=== PATIENT | male | born 1940 | race Caucasian/White ===

== ENCOUNTER 2024-11-19 13:35 | Outpatient (CLI) | payer MEDICARE, BC, SELFPAY | END 2024-11-19 13:36 | disposition home or self-care (01) | LOC: AMB 11-28 01:18 | PROVIDERS: PCP Family Medicine; Visit Provider Emergency Medicine Emergency Medical Services | DX: S19.9XXA Unspecified injury of neck, initial encounter (principal); W07.XXXA Fall from chair, initial encounter; Y92.129 Unspecified place in nursing home as the place of occurrence of the external cause | CPT/HCPCS: A0425; A0427 ==

== ENCOUNTER 2024-11-19 14:03 | Emergency (ER) | payer MEDICARE, BC, SELFPAY ==
--- OUTSIDE RECORDS SUMMARY | 2024-11-19 14:05 | XMS_ITS | Clinical Summary ---
Author Organization [employer] [facility] Address [place], [place] [address] Care Team Providers Care Kiln Stoker Name Role Phone Ronn Roberts MD Primary Care Provider Allergies Active Allergy Reactions Criticality Noted Date Comments Homeopathic Products *Unknown 06/13/2007 Medications aspirin (ECOTRIN) 81 mg enteric coated tablet Take 81 mg by mouth once daily with a meal. 0 06/18/20 17 Active cetirizine (ZYRTEC) 10 mg tabletIndications :Allergic rhinitis due to pollen, unspecified seasonality Take 1 Tablet (10 mg) by mouth once daily. 90 tablet. 05/08/20 21 Active clobetasol 0.05% (TEMOVATE 0.05% OINTMENT) 0.05 % ointmentIndicatio ns:Rash Apply topically to affected area(s) 2 times daily. 30 g 1 07/11/20 22 Active metoprolol succinate (TOPROL XL) 50 mg sustained-release tabletIndications :Hypertension, unspecified type Take 1 Tablet (50 mg) by mouth once daily. 90 Tablet 3 01/29/20 24 Active rosuvastatin (CRESTOR) 20 mg tabletIndications :Cerebrovascular accident (CVA), unspecified mechanism (HC) Take 1 Tablet (20 mg) by mouth at bedtime. 90 Tablet 3 01/29/20 24 Active omeprazole (PRILOSEC) 20 mg Delayed-Release capsuleIndication s:Gastroesophagea l reflux disease without esophagitis Take 1 Capsule (20 mg) by mouth once daily before a meal. 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 10/21/20 24 Active multivitamin (MVI) tablet Take 1 Tablet by mouth once daily. Active ticagrelor (BRILINTA) 90 mg tabletIndications :Right-sided extracranial carotid artery occlusion,Cerebro vascular accident (CVA) due to thrombosis of right carotid artery (HC) Take 1 tablet (90mg) by mouth every 12 hours through 05/10/2025, THEN take 1 tablet (90mg) by mouth once daily through 06/09/2025, then stop taking. 90 Tablet 5 4 11:56 AM ON SITE COORDINATOR 11/09/20 24 Active acetaminophen (TYLENOL) 325 mg tabletIndications :Pain Take 2 Tablets (650 mg) by mouth every 4 hours if needed for Pain or Temp > (Specify) (Temp >100.4 F (38 C)). Max acetaminophen dose: 4000mg in 24 hrs. 11/12/20 Active losartan (COZAAR) 25 mg tabletIndications :HTN (hypertension) Take 1 Tablet (25 mg) by mouth once daily. Hold for SBP <110 11/13/20 24 Active OLANzapine (ZYPREXA ZYDIS) 5 mg disintegrating tabletIndications :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 (HC) Take ONE-HALF tablet (2.5 mg) by mouth at bedtime if needed for Agitation, Hallucinations or Sleep. 30 Tablet 4 10:43 AM ON SITE COORDINATOR 11/12/20 24 Active memantine (NAMENDA) 5 mg tablet Take 10 mg by mouth two times daily. 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 11/06/2024 Mixed Alzheimer's and vascular dementia 11/06/20 Prediabetes 10/21/2024 Hemiparesis affecting left side as late effect o f stroke 01/29/2023 Cerebrovascular accident (CVA) 12/26/2021 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 11/06/2021 B12 deficiency 09/24/2021 HTN (hypertension) 06/18/2017 Venous insufficiency 04/12/2017 Obesity, unspecified 08/30/2016 Osteoarthritis of right knee 03/03/2015 S/P total knee arthroplasty 03/03/2015 Vitamin D deficiency 11/18/2011 ED (erectile dysfunction) 07/13/2008 Occasional rectal bleeding 06/27/2007 Esophageal reflux 06/25/2007 OSTEOARTHRITIS 06/15/2007 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 [address] [place] [address] Staff, Other Clinical <No scans attached> 11/06/2024 11:56 AM ON SITE COORDINATOR - 11/17/2024 8:10 AM ON SITE COORDINATOR Hospital Encounter [facility] [address] [place] [address] Jayleen Mendez MD Jacoby, MD Lyndsay Licea Ashfaq, MD Lefebvre, MD Davon Frias, MD Kvng King, Danisha Slater MD [facility] [place] [facility] Right-sided extracranial carotid artery occlusion (Primary Dx); 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 (HC); Pain; HTN (hypertension) Discharge Disposition: Custodial Facility 11/06/2024 9:47 AM ON SITE COORDINATOR - 11/06/2024 11:19 AM ON SITE COORDINATOR Emergency [facility] [address] [place] [address] Jakub Contreras MD Cerebrovascular accident (CVA), unspecified mechanism (HC) (Primary Dx) Discharge Disposition: Short Term/PPS Hosp 11/06/2024 Travel 11/04/2024 1:50 PM ON SITE COORDINATOR Office Visit [facility] [address] [place] [address] Ronn Roberts MD Follow Up (Wound care on front left leg.) 11/04/2024 Travel 10/28/2024 1:30 PM ON SITE COORDINATOR Nurse/Clinic Staff Only [address] [place] [address] Dressing Change 10/28/2024 Travel 10/21/2024 7:55 AM ON SITE COORDINATOR Office Visit [facility] [address] [place] [address] Lisa Guo MD Leg Pain/problem (Open Sore - Left leg) 10/21/2024 Travel 09/25/2024 8:45 AM ON SITE COORDINATOR Nurse/Clinic Staff Only [address] [phone] Immunization/Injectio n (Vitamin B12) 09/25/2024 Travel 08/28/2024 8:30 AM CDT Nurse/Clinic Staff Only [address] [phone] Immunization/Injectio n (B12) 08/28/2024 Travel from Last 3 Months Immunizations Name Administration Dates Next Due COVID-19 vaccine ([employer] 30mcg/0.3mL) PF, MDV 01/07/2021,12/17/2020 Influenza, High-dose Inactivated 09/10/2018,08/18 Influenza, High-dose Quadriv alent Inactivated 08/21/2021 Influenza, IIV3 (Age >=3 years) 10/12/2014,10/15 Influenza, Inactivated AIIV4 (Age 65+ Years) Preserv Free 11/05/2020 Influenza, Inactivated IIV3 (Age 65+ Years) Preserv Free 07/28/2024,09/21/2019,08/21/2017 Pneumococcal Poly,23-Valent (Pneumovax) 03/24/20 12 Pneumococcal conj 13-Valent (Prevnar 13) 016 Td, Preservative Free (age >= 7 Years) 8 Tdap 09/04/2016 Zoster (Shingrix-RZV, recombinant) 09/01/2023, Zoster (Zostavax-ZVL, live) 03/24/2012 Family History Medical History Relation Name Comments Cancer Father lung Heart Disease Father Relation Name Status Comments Daughter Pema Hall Alive Father lung cancer fro m asbestos exposure Mother Alive Social History Tobacco Use Types Packs/Day Years Used Date Smoking Tobacco: Never Smokeless Tobacco: Never Alcohol Use Standard Drinks/Week Comments Not Currently 0 (1 standard drink = 0.6 oz pur e alcohol) [facility] Utilities Answer Date Recorded Do you have trouble paying f or utilities (for example, heat, electricity, water, phone)? Yes 11/11/2024 PHQ-2 Answer Date Recorded PHQ-2 TOTAL SCORE 0 01/29/2024 Social Connections Answer Date Recorded Do you often feel lonely or isolated from those around you? 0 11/11/2024 Financial Resource Strain Answer Date R ecorded Difficulty of Paying Living Expenses 3 11/11/2024 Difficulty of Paying Living Expenses Not on file 11/11/2024 Food Insecurity Answer Date Recorded Do you worry your food will run out before you are able to buy more? 1 11/11/2024 Transportation Needs Answer Date Record ed Does lack of transportation keep you from medica l appointments? 1 11/11/2024 Does lack of transportation keep you from work, meetings or getting things that you need? 1 11/11/2024 Housing Stability Answer Date Recorded What is your housing situation today? 1 11/11/2024 Interpersonal Safety Answer Date Record ed Are you being hit, kicked, p ushed or yelled at (see row info)? Unable to assess due to chronic condition 11/09/2024 Interpersonal Safety Abuse 12 - 18 Not on file 11/09/2024 Interpersonal Safety Ambulat ory Vulnerability Not on file 11/09/2024 Sex and Gender Information Value Date Recorded Sex Assigned at Not on file Legal Sex Male 5:23 AM ON SITE COORDINATOR Gender Identity Not on file Sexual Orientation Not on file Obstetrics History Last Filed Vital Signs Vital Sign Reading Time Taken Comments Blood Pressure 114/63 11/17/2024 5:47 AM ON SITE COORDINATOR Pulse 76 11/17/2024 5:47 AM ON SITE COORDINATOR Temperature 36.6 C (97.8 F) 11/17/2024 5:47 AM ON SITE COORDINATOR Respiratory Rate 18 11/17/2024 5:47 AM ON SITE COORDINATOR Oxygen Saturation 94% 11/17/2024 5:47 AM ON SITE COORDINATOR Inhaled Oxygen Concentration - - Weight 120.4 kg (265 lb 6.9 oz) 11/07/2024 2:00 AM ON SITE COORDINATOR Height 182.9 cm (6') 11/06/2024 10:12 AM ON SITE COORDINATOR Body Mass Index 36 11/06/2024 10:12 AM ON SITE COORDINATOR Plan of Treatment Upcoming Encounters Date Type Department Care Team (Late st Contact Info) Description 11/27/2024 1:00 PM ON SITE COORDINATOR Nurse/Clinic Staff Only [facility] [address] [place] [address] 12/08/2024 1:30 PM ON SITE COORDINATOR Appointment [facility] [address] [place] [address] 12/09/2024 2:00 PM ON SITE COORDINATOR Phone Office Visit [facility] [place] [address] [place] [phone] Raad Darling MD [address] [place] [address] 02/09/2025 11:[address] [facility] [address] [place] [address] 02/10/2025 2:00 PM CDT Phone Office Visit [facility] [place] [address] [place] [phone] Raad Darling MD [address] [place] [address] Health Maintenance Due Date Last Done Comments RSV vaccine for adults or (1 - 1-dose 75+ series) 2016 Depression screening for age 12+ 01/28/2025 01/29/2024, 07/11/2022, 05/08/2021, Additional history exists Medicare Wellness for age 65+ 01/29/2025, 07/11/2022, 05/08/2021, Additional history exists BMI (ht and wt on same day) for age 18+ 11/04/2025 11/04/2024, 01/29/2024, 07/11/2022, Additional history exists Tetanus booster 09/04/2026 09/04/2016, 07/13/2008 Pneumococcal series for age 50+ Completed 04/03/2016, 04/03/2016, 03/24/2012 Tdap Completed 09/04/2016 Zoster (shingles) series for age 50+ Completed 09/01/2023, 07/05/2023, 03/24/2012 COVID-19 vaccine series Completed 07/28/20 24, 09/21/2023, 08/30/2022, Additional history exists Influenza for age 65+ Completed 07/28/2024 , 08/21/2021, 11/05/2020, Additional history exists Medical Devices Implanted Type Area Home Teaching Grades 9 Thru 12 Teacher Device Identifier Shelf Expiration Date Model / Serial / Lot [id number] - [id number] Implanted:Qty: 1 on 03/03/2015 by Jay Nuñez MD at [facility] Ortho Total Joint Right: Knee DEPUY 03/17/2024 0 / / [id number] Description:SIGMA FEMORAL PO STERIOR STABILIZED CEMENTED SIZE 5 RIGHT [id number] - [id number] Implanted:Qty: 1 on 03/03/2015 by Jay Nuñez MD at [facility] Ortho Total Joint Right: Knee DEPUY 01/15/2025 0 / / [id number] Description:P.F.C. SIGMA TIB IAL TRAY FIXED BEARING MODULAR COCR 5 [id number] - [id number] Implanted:Qty: 1 on 03/03/2015 by Jay Nuñez MD at [facility] Ortho Total Joint Right: Knee DEPUY 09/17/2019 [id number] / / [id number] Description:OVAL DOME PATELL A 3-PEG, 41MM Cement Simplex P#[id number] * - [id number] Implanted:Qty: 1 on 03/03/2015 by Jay Nuñez MD at [facility] [employer] 07/18/2017 [id number] / / [id number] - [id number] Implanted:Qty: 1 on 03/03/2015 by Jay Nuñez MD at [facility] Right: Knee DEPUY 03/17/2019 8 / / [id number] Description:PFC SIGMA TIBIAL INSERT FIXED BEARING STAB Procedures Procedure Name Priority Date/Time Associated Diagnosis Comments GLUCOSE METER Timed 11/16/2024 9:42 PM ON SITE COORDINATOR GLUCOSE METER Timed 11/16/2024 12:42 PM ON SITE COORDINATOR WHITE BLOOD COUNT Early AM 11/15/2024 8:0 6 AM ON SITE COORDINATOR PLATELET COUNT Timed 11/15/2024 8:06 AM ON SITE COORDINATOR CREATININE Early AM 11/14/2024 6:12 AM ON SITE COORDINATOR POTASSIUM Early AM 11/14/2024 6:12 AM ON SITE COORDINATOR SODIUM Early AM 11/14/2024 6:12 AM ON SITE COORDINATOR WHITE BLOOD COUNT Early AM 11/14/2024 6:1 2 AM ON SITE COORDINATOR CBC WITH AUTO DIFFERENTIAL STAT 11/13/2024 4:25 AM ON SITE COORDINATOR COMP METABOLIC PANEL STAT 11/13/2024 4:25 AM ON SITE COORDINATOR CBC WITH AUTO DIFFERENTIAL STAT 11/13/2024 4:25 AM ON SITE COORDINATOR MAGNESIUM STAT 11/13/2024 4:25 AM ON SITE COORDINATOR BLOOD GAS,VENOUS STAT 11/13/2024 4:25 AM ON SITE COORDINATOR GLUCOSE METER Timed 11/13/2024 4:09 AM ON SITE COORDINATOR GLUCOSE METER Timed 11/12/2024 9:32 PM ON SITE COORDINATOR CT HEAD BRAIN WO STAT 11/12/2024 9:25 PM ON SITE COORDINATOR BLOOD CULTURE STAT 11/12/2024 7:45 PM ON SITE COORDINATOR BLOOD CULTURE STAT 11/12/2024 7:45 PM ON SITE COORDINATOR EKG 12 LEAD STAT 11/12/2024 7:41 PM ON SITE COORDINATOR BLOOD GAS,VENOUS STAT 11/12/2024 7:22 PM ON SITE COORDINATOR LACTATE VENOUS STAT 11/12/2024 7:22 PM ON SITE COORDINATOR XR CHEST 1 VIEW PORTABLE Routine 11/12/2024 7:20 PM ON SITE COORDINATOR UA W/ SEDIMENT EXAM REFLEXED PER CRITERIA Today 11/12/2024 6:48 PM ON SITE COORDINATOR COMP METABOLIC PANEL Today 11/12/2024 5:43 PM ON SITE COORDINATOR CBC W PLT NO DIFF Today 11/12/2024 5:4 3 PM ON SITE COORDINATOR PLATELET COUNT Timed 11/12/2024 7:08 AM ON SITE COORDINATOR PLATELET COUNT Timed 11/09/2024 6:02 AM ON SITE COORDINATOR SCAN-CARDIAC STRIP 11/09/2024 1: 18 AM ON SITE COORDINATOR GLUCOSE METER Timed 11/08/2024 8:18 AM ON SITE COORDINATOR CBC W PLT NO DIFF Early AM 11/08/2024 7:4 2 AM ON SITE COORDINATOR SCAN-CARDIAC STRIP 11/08/2024 2: 29 AM ON SITE COORDINATOR GLUCOSE METER Timed 11/08/2024 2:00 AM ON SITE COORDINATOR GLUCOSE METER Timed 11/07/2024 9:46 PM ON SITE COORDINATOR SCAN-CARDIAC STRIP 11/07/2024 5: 59 PM ON SITE COORDINATOR MR HEAD BRAIN WO Routine 11/07/2024 3:44 PM ON SITE COORDINATOR GLUCOSE METER Timed 11/07/2024 2:07 PM ON SITE COORDINATOR SCAN-CARDIAC STRIP 11/07/2024 12 :02 PM ON SITE COORDINATOR GLUCOSE METER Timed 11/07/2024 10:13 AM ON SITE COORDINATOR XR ABDOMEN 1 VIEW PORTABLE Routine 11/07/2024 8:22 AM ON SITE COORDINATOR XR ABDOMEN 1 VIEW PORTABLE STAT 11/07/2024 5:35 AM ON SITE COORDINATOR HEMOGLOBIN A1C Early AM 11/07/2024 4:39 AM ON SITE COORDINATOR LIPID PANEL Early AM 11/07/2024 4:39 AM ON SITE COORDINATOR GLUCOSE METER Timed 11/07/2024 1:56 AM ON SITE COORDINATOR GLUCOSE METER Timed 11/06/2024 8:52 PM ON SITE COORDINATOR SCAN-CARDIAC STRIP 11/06/2024 8: 00 PM ON SITE COORDINATOR ECHO TTE COMPLETE W CONTRAST Routine 11/06/2024 5:01 PM ON SITE COORDINATOR EKG 12 LEAD STAT 11/06/2024 2:32 PM ON SITE COORDINATOR IR ANGIO NEURO-INTERVENTIONAL STAT 11/06/2024 1:35 PM ON SITE COORDINATOR EKG 12 LEAD STAT 11/06/2024 10:26 AM ON SITE COORDINATOR CBC WITH AUTO DIFFERENTIAL STAT 11/06/2024 10:08 AM ON SITE COORDINATOR ETHANOL SERUM OR PLASMA STAT 11/06/2024 10:08 AM ON SITE COORDINATOR BASIC METABOLIC PANEL STAT 11/06/2024 10:08 AM ON SITE COORDINATOR PROTIME-INR STAT 11/06/2024 10:08 AM ON SITE COORDINATOR CBC WITH AUTO DIFFERENTIAL STAT 11/06/2024 10:08 AM ON SITE COORDINATOR CT HEAD STROKE PROTOCOL WITHOUT CONTRAST STAT 11/06/2024 10:05 AM ON SITE COORDINATOR CT ANGIO HEAD NECK CAROTID STROKE PROTOCOL ROLF CANDIDAT STAT 11/06/2024 10:00 AM ON SITE COORDINATOR from Last 3 Months Results * (ABNORMAL) GLUCOSE METER (11/16/2024 9:42 PM ON SITE COORDINATOR) Only the most recent of11 resultswithin the time period is included. [facility] Signature GLUCOSE METER 120(H) 65 - 100 mg/dL 11/16/2024 9:43 PM ON SITE COORDINATOR [facility] Blood BLOOD SPECIMEN / Unknown 11/16/2024 9:42 PM ON SITE COORDINATOR 11/16/2024 9:43 PM ON SITE COORDINATOR us Valarie Mays MD CHEMISTRY Roseanne l Result [facility] [address] [place] [address], [place] * PLATELET COUNT (11/15/2024 8:06 AM ON SITE COORDINATOR) Only the most recent of3 resultswithin the time period is included. PLATELET COUNT 201 140 - 440 thou/cu mm 11/15/2024 8:36 AM ON SITE COORDINATOR [facility] MPV 10.3 6.5 - 11.0 fL 11/15/2024 8:36 AM ON SITE COORDINATOR [facility] Blood BLOOD SPECIMEN / Unknown Butterfly / Unknown 11/15/2024 8:06 AM ON SITE COORDINATOR 11/15/2024 8:23 AM ON SITE COORDINATOR Narrative [facility] - 11/15/2024 8:36 AM ON SITE COORDINATOR With am labs while on heparin or LMWH per hospital policy Pepito Umana MD HEMATOLOGY Final Result Performing Organization Address [facility] de Phone Number [facility] [address] [place] [address], [place] * WBC AM (11/15/2024 8:06 AM ON SITE COORDINATOR) Only the most recent of2 resultswithin the time period is included. WHITE BLOOD COUNT 9.7 4.5 - 11.0 thou/cu mm 11/15/2024 8:36 AM ON SITE COORDINATOR [facility] NRBC 0.0 % 11/15/2024 8:36 AM ON SITE COORDINATOR [facility] ABS NRBC 0.0 thou /cu mm 11/15/2024 8:36 AM ON SITE COORDINATOR [facility] Blood BLOOD SPECIMEN / Unknown Butterfly / Unknown 11/15/2024 8:06 AM ON SITE COORDINATOR 11/15/2024 8:23 AM ON SITE COORDINATOR Narrative [facility] - 11/15/2024 8:36 AM ON SITE COORDINATOR With am labs while on heparin or LMWH per hospital policy Allan Story MD HEMATOLOGY Final R esult Performing Organization Address [facility] Co de Phone Number [facility] [address] [place] [address], [place] * SODIUM (11/14/2024 6:12 AM ON SITE COORDINATOR) SODIUM 136 136 - 145 mmol/L 11/14/2024 6:54 AM ON SITE COORDINATOR [facility] Blood BLOOD SPECIMEN / Unknown Venipuncture / Unknown 11/14/2024 6:12 AM ON SITE COORDINATOR 11/14/2024 6:22 AM ON SITE COORDINATOR Pepito Umana MD CHEMISTRY Final Result [facility] [address] [place] [address], [place] * POTASSIUM (11/14/2024 6:12 AM ON SITE COORDINATOR) POTASSIUM 4.0 3.5 - 5.1 mmol/L 11/14/2024 6:54 AM ON SITE COORDINATOR [facility] Blood BLOOD SPECIMEN / Unknown Venipuncture / Unknown 11/14/2024 6:12 AM ON SITE COORDINATOR 11/14/2024 6:22 AM ON SITE COORDINATOR Pepito Umana MD CHEMISTRY Final Result Performing Organization Address [facility] Co de Phone Number [facility] [address] [place] [address], [place] * (ABNORMAL) CREATININE (11/14/2024 6:12 AM ON SITE COORDINATOR) eGFR 70(L) >90 mL/min/1.7 3m2 11/14/2024 6:54 AM ON SITE COORDINATOR [facility] Comment:As of 2022, eG FR is calculated by the CKD-EPI creatinine equation without race adjustment. eGFR can be influenced by muscle mass, exercise, and diet. The reported eGFR is an estimation only and is only applicable if the renal function is stable. CREATININE 1.05 0.70 - 1.20 mg/dL 11/14/2024 6:54 AM ON SITE COORDINATOR [facility] Blood BLOOD SPECIMEN / Unknown Venipuncture / Unknown 11/14/2024 6:12 AM ON SITE COORDINATOR 11/14/2024 6:22 AM ON SITE COORDINATOR Pepito Umana MD CHEMISTRY Final Result [facility] [address] [place] [address], * (ABNORMAL) CBC WITH AUTO DIFFERENTIAL (11/13/2024 4:25 AM ON SITE COORDINATOR) Only the most recent of2 resultswithin the time period is included. WHITE BLOOD COUNT 12.9(H) 4.5 - 11.0 thou/cu mm 11/13/2024 4:39 AM [facility] RED BLOOD COUNT 5.29 4.30 - 5.90 mil/cu mm 11/13/2024 4:39 AM [facility] HEMOGLOBIN 15.4 13.5 - 17.5 g/dL 11/13/2024 4:39 AM [facility] HEMATOCRIT 45.3 37.0 - 53.0 % 11/13/2024 4:39 AM [facility] MCV 86 80 - 100 fL 11/13/2024 4:39 AM [facility] MCH 29.1 26.0 - 34.0 pg 11/13/2024 4:39 AM [facility] MCHC 34.0 32.0 - 36.0 g/dL 11/13/2024 4:39 AM [facility] RDW 12.5 11.5 - 15.5 % 11/13/2024 4:39 AM [facility] PLATELET COUNT 176 140 - 440 thou/cu mm 11/13/2024 4:39 AM [facility] MPV 10.2 6.5 - 11.0 fL 11/13/2024 4:39 AM [facility] NRBC 0.0 % 11/13/2024 4:39 AM [facility] ABS NRBC 0.0 thou /cu mm 11/13/2024 4:39 AM [facility] % NEUT 93.4 % 11/13/2024 4:39 AM [facility] % LYMPH 4.6 % 11/13/2024 4:39 AM [facility] % MONO 1.3 % 11/13/2024 4:39 AM [facility] % EOS 0.1 % 11/13/2024 4:39 AM [facility] % BASO 0.1 % 11/13/2024 4:39 AM [facility] % IMMATURE GRAN (METAS,MYELOS,UT OS) 0.5 % 11/13/2024 4:39 AM [facility] ABSOLUTE NEUTROPHILS 12.1(H) 1.7 - 7.0 thou/cu mm 11/13/2024 4:39 AM [facility] ABSOLUTE LYMPHOCYTES 0.6(L) 0.9 - 2.9 thou/cu mm 11/13/2024 4:39 AM [facility] ABSOLUTE MONOCYTES 0.2 <0.9 thou/cu mm 11/13/2024 4:39 AM [facility] ABSOLUTE EOSINOPHILS 0.0 <0.5 thou/cu mm 11/13/2024 4:39 AM [facility] ABSOLUTE BASOPHILS 0.0 <0.3 thou/cu mm 11/13/2024 4:39 AM [facility] ABSOLUTE IMMATURE GRANULOCYTES(MET ,MYELOS,PROS) 0.1 <0.3 thou/cu mm 11/13/2024 4:39 AM [facility] Blood BLOOD SPECIMEN / Unknown Butterfly / Unknown 11/13/2024 4:25 AM [facility] 11/13/2024 4:33 AM [facility] - 11/13/2024 4:39 AM ON SITE COORDINATOR RN to order if patient presents with two or more positive sepsis screening criteria plus new or worsening signs or symptoms of suspected infection. Pepito Umana MD HEMATOLOGY Final Result [facility] [address] [place] [address], [place] * (ABNORMAL) BLOOD GAS,VENOUS (11/13/2024 4:25 AM ON SITE COORDINATOR) Only the most recent of2 resultswithin the time period is included. PH, VENOUS 7.36 7.32 - 7.43 11/13/2024 4:46 AM ON SITE COORDINATOR [facility] PCO2, VENOUS 38(L) 41 - 51 mmHg 11/13/2024 4:46 AM ON SITE COORDINATOR [facility] PO2, VENOUS 54(H) 35 - 40 mmHg 11/13/2024 4:46 AM ON SITE COORDINATOR [facility] HCO3,VENOUS 22 22 - 29 mmol/L 11/13/2024 4:46 AM ON SITE COORDINATOR [facility] BASE EXCESS, VENOUS, POCT -3.6(L) -2.0 - 3.0 11/13/2024 4:46 AM ON SITE COORDINATOR [facility] O2 SATURATION, VENOUS 86(H) 70 - 75 % 11/13/2024 4:46 AM ON SITE COORDINATOR [facility] PATIENT TEMPERATURE 37.0 Degrees C 11/13/2024 4:46 AM ON SITE COORDINATOR [facility] Blood BLOOD SPECIMEN / Unknown Butterfly / Unknown 11/13/2024 4:25 AM ON SITE COORDINATOR 11/13/2024 4:33 AM ON SITE COORDINATOR Pepito Umana MD CHEMISTRY Final Result [facility] [address] [place] [address], [place] * Magnesium - ESTIMATOR PRINTING PLATE MAKING (11/13/2024 4:25 AM ON SITE COORDINATOR) MAGNESIUM 2.2 1.6 - 2.4 mg/dL 11/13/2024 4:56 AM ON SITE COORDINATOR [facility] Blood BLOOD SPECIMEN / Unknown Butterfly / Unknown 11/13/2024 4:25 AM ON SITE COORDINATOR 11/13/2024 4:33 AM ON SITE COORDINATOR Pepito Umana MD CHEMISTRY Final Result [facility] [address] [place] [address], * (ABNORMAL) Comprehensive Metabolic Panel - ESTIMATOR PRINTING PLATE MAKING (11/13/2024 4:25 AM ON SITE COORDINATOR) Only the most recent of2 resultswithin the time period is included. SODIUM 135(L) 136 - 145 mmol/L 11/13/2024 4:56 AM [facility] POTASSIUM 4.7 3.5 - 5.1 mmol/L 11/13/2024 4:56 AM [facility] CHLORIDE 103 98 - 107 mmol/L 11/13/2024 4:56 AM [facility] CO2,TOTAL 19(L) 22 - 29 mmol/L 11/13/2024 4:56 AM [facility] ANION GAP 13 5 - 18 11/13/2024 4:56 AM [facility] GLUCOSE 190(H) 70 - 99 mg/dL 11/13/2024 4:56 AM [facility] CALCIUM 8.8 8.8 - 10.4 mg/dL 11/13/2024 4:56 AM [facility] Comment: Reference ranges for this test were updated on 09/22/2024 to reflect our healthy population more accurately. Reference range changes are not retroactively applied to results, but previous results using the same methodology can be interpreted in the context of the new reference range. BUN 27(H) 8 - 23 mg/dL 11/13/2024 4:56 AM [facility] CREATININE 1.11 0.70 - 1.20 mg/dL 11/13/2024 4:56 AM [facility] BUN/CREAT RATIO 24(H) 10 - 20 4:56 AM [facility] eGFR 66(L) >90 mL/min/1. 73m2 11/13/2024 4:56 AM ON SITE COORDINATOR [facility] Comment:As of 2022, eG FR is calculated by the CKD-EPI creatinine equation without race adjustment. eGFR can be influenced by muscle mass, exercise, and diet. The reported eGFR is an estimation only and is only applicable if the renal function is stable. ALBUMIN 3.5(L) 4.0 - 4.9 g/dL 11/13/2024 4:56 AM ON SITE COORDINATOR [facility] PROTEIN,TOTAL 7.4 6.0 - 8.0 g/dL 11/13/2024 4:56 AM ON SITE COORDINATOR [facility] BILIRUBIN,TOTAL 0.8 0.0 - 1.2 mg/dL 11/13/2024 4:56 AM ON SITE COORDINATOR [facility] ALK PHOSPHATASE 87 40 - 129 IU/L 11/13/2024 4:56 AM ON SITE COORDINATOR [facility] ALT (SGPT) 26 10 - 50 IU/L 11/13/2024 4:56 AM ON SITE COORDINATOR [facility] AST (SGOT) 35 10 - 50 IU/L 11/13/2024 4:56 AM ON SITE COORDINATOR [facility] Blood BLOOD SPECIMEN / Unknown Butterfly / Unknown 11/13/2024 4:25 AM ON SITE COORDINATOR 11/13/2024 4:33 AM ON SITE COORDINATOR Pepito Umana MD CHEMISTRY Final Result [facility] [address] [address], * CT head without contrast (11/12/2024 9:25 PM ON SITE COORDINATOR) Anatomical Region Laterality Modality HEAD, BRAIN Computed Tomogra phy 11/12/2024 9:35 PM ON SITE COORDINATOR Impressions 11/12/2024 9:35 PM ON SITE COORDINATOR 1. Redemonstration of the subacute infarct at the right posterior temporal/perisylvian region. No CT evidence of recent ischemia elsewhere within the brain. No acute intracranial hemorrhage. Please note that all CT scans at this facility use dose modulation, iterative reconstruction, and/or weight-based dosing when appropriate to reduce radiation dose to as low as reasonably achievable. Dictated by Ricco Obando MD @ 11/12/2024 9:35:53 PM (Electronically Signed) Narrative 11/12/2024 9:35 PM ON SITE COORDINATOR For Patients: As a result of the Cures Act, medical imaging exams and procedure reports are released immediately into your electronic medical record. You may view this report before your referring provider. If you have questions, please contact your health care provider. INDICATION: Stroke follow-up. TECHNIQUE: CT of the head without contrast. Coronal and sagittal reformats are included. COMPARISON: Brain MRI from 11/07/2024. FINDINGS: Subtle hypoattenuation within the right posterior temporal/perisylvian region, consistent with known subacute infarction. No hyperdense vessels to suggest intracranial thrombus. No acute intracranial hemorrhage. No mass effect or midline shift. No hydrocephalus or extra-axial collections. Patchy white matter hypoattenuation, typical for chronic microvascular ischemic change. 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 No acute osseous abnormalities. Mastoid air cells and paranasal sinuses are clear. Normal soft tissues. Procedure Note Ricco Obando MD - 11/12/2024 For Patients: As a result of the Cures Act, medical imagingexams and procedure reports are released immediately into your electronicmedical record. You may view this report before your referring provider.If you have questions, please contact your health care provider. INDICATION: Stroke follow-up. TECHNIQUE: CT of the head without contrast. Coronal and sagittal reformats areincluded. COMPARISON: Brain MRI from 11/07/2024. FINDINGS: Subtle hypoattenuation within the right posterior temporal/perisylvianregion, consistent with known subacute infarction. No hyperdense vesselsto suggest intracranial thrombus. No acute intracranial hemorrhage. Nomass effect or midline shift. No hydrocephalus or extra-axial collections.Patchy white matter hypoattenuation, typical for chronic microvascularischemic change. A chronic transcortical infarct within the left occipitallobe. No acute osseous abnormalities. Mastoid air cells and paranasal sinusesare clear. Normal soft tissues. IMPRESSION: 1. Redemonstration of the subacute infarct at the right posteriortemporal/perisylvian region. No CT evidence of recent ischemia elsewherewithin the brain. No acute intracranial hemorrhage. Please note that all CT scans at this facility use dose modulation,iterative reconstruction, and/or weight-based dosing when appropriate toreduce radiation dose to as low as reasonably achievable. Dictated by Ricco Obando MD @ 11/12/2024 9:35:53 PM (Electronically Signed) us Cody Mendes MD CT Final Result * Blood culture STAT (11/12/2024 7:45 PM ON SITE COORDINATOR) Only the most recent of2 resultswithin the time period is included. Pathologist [facility] CULTURE No Growth. 11/17/2024 8:19 PM ON SITE COORDINATOR [facility] Blood BLOOD SPECIMEN / Unknown Butterfly / Unknown 11/12/2024 7:45 PM ON SITE COORDINATOR 11/12/2024 7:54 PM ON SITE COORDINATOR Narrative [facility] - 11/17/2024 8:19 PM ON SITE COORDINATOR Low volume blood culture received; possible false negative culture. us Cody Mendes MD MICROBIOLOGY Final Result [facility] [address] [place] [address], * ECG STAT (11/12/2024 7:41 PM ON SITE COORDINATOR) Only the most recent of3 resultswithin the time period is included. Interpretation Sinus tachycardia Minimal voltage criteria for LVH, may be normal variant ( R in aVL ) Nonspecific ST and T wave abnormality Abnormal ECG When compared with ECG of 06-Nov-2024 14:32, UT interval has decreased ST now depressed in Lateral leads Nonspecific T wave abnormality no longer evident in Inferior leads BEYOND NOW Ventricular Rate 118 BPM BEYOND NOW Atrial Rate 118 BPM BEYOND NOW P-R Interval 194 ms BEYOND NOW QRS Duration 84 ms BEYOND NOW QT 298 ms BEYOND NOW QTc 417 ms BEYOND NOW P [place] 41 degrees BEYOND NOW R [place] -14 degrees BEYOND NOW T [place] 62 degrees BEYOND NOW 11/12/2024 7:41 PM ON SITE COORDINATOR 11/13/2024 5:26 PM ON SITE COORDINATOR us Cody Mendes MD EKG ORD Final Result [facility] NOW [place], [place] * Lactate STAT (venous) (11/12/2024 7:22 PM ON SITE COORDINATOR) LACTATE,VENOUS 1.3 0.5 - 2.0 mmol/L 11/12/2024 7:53 PM ON SITE COORDINATOR [facility] Blood BLOOD SPECIMEN / Unknown Butterfly / Unknown 11/12/2024 7:22 PM ON SITE COORDINATOR 11/12/2024 7:29 PM ON SITE COORDINATOR Cody Mendes MD CHEMISTRY Final Result [facility] [address] [place] [address], [place] * XR CHEST 1 VIEW PORTABLE (11/12/2024 7:20 PM ON SITE COORDINATOR) Anatomical Region Laterality Modality HEART, THORAX, CHEST Digital Rad iography 11/13/2024 6:44 AM ON SITE COORDINATOR Impressions 11/13/2024 6:44 AM ON SITE COORDINATOR Appearance suggests infectious airways disease/bronchitis without a large focal pneumonia. Dictated by Awa Woodard MD @ Nov 13 2024 6:44AM (Electronically Signed) [email or web address] Narrative 11/13/2024 6:44 AM ON SITE COORDINATOR For Patients: As a result of the s Act, medical imaging exams and procedure reports are released immediately into your electronic medical record. You may view this report before your referring provider. If you have questions, please contact your health care provider. INDICATION: Evaluate lung infiltrate TECHNIQUE: 1 view chest radiograph COMPARISON: 09/16/2021 FINDINGS: Devices: None. Lung volumes are moderate. Central peribronchial cuffing and reticulonodular opacities in both lung bases. No pleural effusion. No pneumothorax. Heart size is normal. Procedure Note Awa Woodard MD - 11/13/2024 For Patients: As a result of the s Act, medical imagingexams and procedure reports are released immediately into your electronicmedical record. You may view this report before your referring provider.If you have questions, please contact your health care provider. INDICATION: Evaluate lung infiltrate TECHNIQUE: 1 view chest radiograph COMPARISON: 09/16/2021 FINDINGS: Devices: None. Lung volumes are moderate. Central peribronchial cuffing andreticulonodular opacities in both lung bases. No pleural effusion. Nopneumothorax. Heart size is normal. IMPRESSION: Appearance suggests infectious airways disease/bronchitis without a largefocal pneumonia. Dictated by Awa Woodard MD @ Nov 13 2024 6:44AM (Electronically Signed) [email or web address] Pepito Umana MD GENERAL IMAGING Final Result * (ABNORMAL) Urinalysis TODAY (11/12/2024 6:48 PM ON SITE COORDINATOR) COLOR Yellow Yellow Color 11/12/2024 7:09 PM ON SITE COORDINATOR [facility]AL [facility] CLARITY Clear Clear Clarity 11/12/2024 7:09 PM ON SITE COORDINATOR [facility]- [facility] SPECIFIC GRAVITY,URINE 1.020 1.010, 1.015, 1.020, 1.025 11/12/2024 7:09 PM ON SITE COORDINATOR [facility] PH,URINE 6.0 6.0, 7.0, 8.0, 5.5, 6.5, 7.5, 8.5 11/12/2024 7:09 PM ON SITE COORDINATOR [facility] UROBILINOGEN, QUALITATIVE Increased(A) Normal EU/dl 11/12/2024 7:09 PM ON SITE COORDINATOR [facility] PROTEIN, URINE Trace(A) Negative mg/dL 11/12/2024 7:09 PM ON SITE COORDINATOR [facility] GLUCOSE, URINE Negative Negative mg/dL 11/12/2024 7:09 PM ON SITE COORDINATOR [facility] KETONES,URINE Negative Negative mg/dL 11/12/2024 7:09 PM ON SITE COORDINATOR [facility] BILIRUBIN,URI NE Negative Negative 11/12/2024 7:09 PM ON SITE COORDINATOR [facility]- [facility]AL LAB[facility] OCCULT BLOOD,URINE Negative Negative 11/12/2024 7:09 PM [facility]AL [facility] NITRITE Negative Negative 11/12/2024 7:09 PM ON SITE COORDINATOR [facility] NTRFL LABORATORY LEUKOCYTE ESTERASE Negative Negative 11/12/2024 7:09 PM [facility] NTR[facility] Urine URINE SPECIMEN / Unknown Non-Blood / Unknown 11/12/2024 6:48 PM ON SITE COORDINATOR 11/12/2024 7:02 PM ON SITE COORDINATOR Pepito Umana MD URINE Final Result [facility] [address] [place] [address], [place] * (ABNORMAL) CBC no diff TODAY (11/12/2024 5:43 PM ON SITE COORDINATOR) Only the most recent of2 resultswithin the time period is included. WHITE BLOOD COUNT 11.4(H) 4.5 - 11.0 thou/cu mm 11/12/2024 6:01 PM [facility] RED BLOOD COUNT 5.54 4.30 - 5.90 mil/cu mm 11/12/2024 6:01 PM [facility] HEMOGLOBIN 15.9 13.5 - 17.5 g/dL 11/12/2024 6:01 PM [facility] HEMATOCRIT 46.9 37.0 - 53.0 % 11/12/2024 6:01 PM [facility] MCV 85 80 - 100 fL 11/12/2024 6:01 PM [facility] MCH 28.7 26.0 - 34.0 pg 11/12/2024 6:01 PM [facility] MCHC 33.9 32.0 - 36.0 g/dL 11/12/2024 6:01 PM [facility] RDW 12.4 11.5 - 15.5 % 11/12/2024 6:01 PM [facility] PLATELET COUNT 177 140 - 440 thou/cu mm 11/12/2024 6:01 PM [facility] MPV 9.6 6.5 - 11.0 fL 11/12/2024 6:01 PM ON SITE COORDINATOR [facility] NRBC 0.0 % 11/12/2024 6:01 PM ON SITE COORDINATOR [facility] ABS NRBC 0.0 thou /cu mm 11/12/2024 6:01 PM ON SITE COORDINATOR [facility] Blood BLOOD SPECIMEN / Unknown Butterfly / Unknown 11/12/2024 5:43 PM ON SITE COORDINATOR 11/12/2024 5:57 PM ON SITE COORDINATOR us Pepito Umana MD HEMATOLOGY Final Result [facility] [address] [place] [address], [place] * SCAN-CARDIAC STRIP (11/09/2024 1:18 AM ON SITE COORDINATOR) us Scanner OTHER Final Result * SCAN-CARDIAC STRIP (11/08/2024 2:29 AM ON SITE COORDINATOR) us Scanner OTHER Final Result * SCAN-CARDIAC STRIP (11/07/2024 5:59 PM ON SITE COORDINATOR) us Scanner OTHER Final Result * MR HEAD BRAIN WO (11/07/2024 3:44 PM ON SITE COORDINATOR) Anatomical Region Laterality Modality BRAIN, HEAD Magnetic Resonan ce 11/07/2024 11:4 4 PM ON SITE COORDINATOR Impressions 11/07/2024 11:44 PM ON SITE COORDINATOR 1. Small and very small/punctate acute/early subacute infarcts in the right parietal operculum, right precentral gyrus, and right centrum semiovale. 2. 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 3. Senescent changes including generalized parenchymal volume loss and findings most consistent with sequela of chronic small vessel ischemia. Dictated by Raad Darling MD @ 11/07/2024 11:44:15 PM (Electronically Signed) Narrative 11/07/2024 11:44 PM ON SITE COORDINATOR For Patients: As a result of the Cures Act, medical imaging exams and procedure reports are released immediately into your electronic medical record. You may view this report before your referring provider. If you have questions, please contact your health care provider. 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 TECHNIQUE: Multi-sequence, multiplanar MRI examination of the brain was performed. COMPARISON: Brain MRI dated 07/28/2021. FINDINGS: There is a relatively small area of restricted diffusion with associated T2/FLAIR hyperintensity involving the cortex/subcortical white matter of the right parietal operculum with several adjacent foci within the cortex/subcortical white matter of the right precentral gyrus and right centrum semiovale. Findings are most consistent with acute/early subacute infarcts. There is no acute intracranial hemorrhage, extra-axial collection, mass effect or midline shift. Small 2 moderate-sized area of encephalomalacia with adjacent gliosis in the left parietal-occipital lobes in keeping with a chronic infarct. Moderate generalized parenchymal volume loss with resulting prominence of cerebral sulci and the ventricular system. Scattered foci and patchy areas of T2/FLAIR hyperintensity in the white matter of both hemispheres likely reflect sequela of chronic small vessel ischemia. The calvarium is unremarkable. Thinning of the ocular lenses. The mastoid air cells are well aerated. Mucous retention cyst in the left maxillary sinus. Procedure Note Raad Darling MD - 11/07/2024 For Patients: As a result of the Cures Act, medical imagingexams and procedure reports are released immediately into your electronicmedical record. You may view this report before your referring provider.If you have questions, please contact your health care provider. 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 TECHNIQUE: Multi-sequence, multiplanar MRI examination of the brain was performed. COMPARISON: Brain MRI dated 07/28/2021. FINDINGS: There is a relatively small area of restricted diffusion with associatedT2/FLAIR hyperintensity involving the cortex/subcortical white matter ofthe right parietal operculum with several adjacent foci within thecortex/subcortical white matter of the right precentral gyrus and rightcentrum semiovale. Findings are most consistent with acute/early subacuteinfarcts. There is no acute intracranial hemorrhage, extra-axial collection, masseffect or midline shift. Small 2 moderate-sized area of encephalomalaciawith adjacent gliosis in the left parietal-occipital lobes in keeping witha chronic infarct. Moderate generalized parenchymal volume loss withresulting prominence of cerebral sulci and the ventricular system.Scattered foci and patchy areas of T2/FLAIR hyperintensity in the whitematter of both hemispheres likely reflect sequela of chronic small vesselischemia. The calvarium is unremarkable. Thinning of the ocular lenses. The mastoidair cells are well aerated. Mucous retention cyst in the left maxillarysinus. IMPRESSION: 1. Small and very small/punctate acute/early subacute infarcts in theright parietal operculum, right precentral gyrus, and right centrumsemiovale. 2. Small to moderate-sized chronic infarct in the left parietal-occipitallobes. 3. Senescent changes including generalized parenchymal volume loss andfindings most consistent with sequela of chronic small vessel ischemia. Dictated by Raad Darling MD @ 11/07/2024 11:44:15 PM (Electronically Signed) us Mauri Cui MD MR Final Result * SCAN-CARDIAC STRIP (11/07/2024 12:02 PM ON SITE COORDINATOR) us Scanner OTHER Final Result * XR ABDOMEN 1 VIEW PORTABLE (11/07/2024 8:22 AM ON SITE COORDINATOR) Only the most recent of2 resultswithin the time period is included. Anatomical Region Laterality Modality Abdomen Digital Radiogra phy Narrative 11/07/2024 10:58 AM ON SITE COORDINATOR Indication: Tube placement. Findings: A single portable view of the abdomen shows an enteric tube in place with the distal tip extending into the antrum of the stomach. No dilated loops of bowel identified. Degenerative changes of the spine. us Valarie Eduardo MD GENERAL IMAGING Fin al Result * Hemoglobin A1C Screening (11/07/2024 4:39 AM ON SITE COORDINATOR) HEMOGLOBIN A1C SCREENING 5.6 <=6.4 % 11/07/2024 8:30 PM [facility] Blood BLOOD SPECIMEN / Unknown Venipuncture / Unknown 11/07/2024 4:39 AM ON SITE COORDINATOR 11/07/2024 5:00 AM [facility] - 11/07/2024 8:30 PM ON SITE COORDINATOR (<5.7%) Normal (5.7% to 6.4%) Indicates prediabetes (>=6.5%) Confirms diabetes Falsely low levels may be seen with: Recent Transfusion, Recent Significant Blood Loss, Hemolytic Diseases, or Falsely elevated levels may be seen with: Untreated Anemias, Splenectomy us Valarie Eduardo MD CHEMISTRY Fin al Result [facility] [address] [place] [address], * (ABNORMAL) Lipid Panel (11/07/2024 4:39 AM ON SITE COORDINATOR) CHOLESTEROL,TOTAL 84(L) 100 - 199 mg/dL 11/07/2024 5:37 AM [facility] Comment: Cholesterol, Total Reference Ranges Desirable <200 mg/dL Borderline 200-239 mg/dL High >=240 mg/dL TRIGLYCERIDES 53 <150 mg/dL 11/07/2024 5:37 AM [facility] HDL CHOLESTEROL 46 >40 mg/dL 5:37 AM [facility] NON-HDL CHOLESTEROL 38 <145 mg/dl 11/07/2024 5:37 AM [facility] CHOL/HDL RATIO 1.83 <4.50 11/07/2024 5:37 AM [facility] LDL CHOLESTEROL 27 <=130 mg/dL 11/07/2024 5:37 AM [facility] VLDL CHOLESTEROL 11 <=30 mg/dL 11/07/2024 5:37 AM [facility] PROVIDER ORDERED STATUS RANDOM 11/07/2024 5:37 AM [facility] Blood BLOOD SPECIMEN / Unknown Venipuncture / Unknown 11/07/2024 4:39 AM ON SITE COORDINATOR 11/07/2024 5:00 AM ON SITE COORDINATOR us Valarie Eduardo MD CHEMISTRY Fin al Result [facility] [address] [place] [address], [place] * SCAN-CARDIAC STRIP (11/06/2024 8:00 PM ON SITE COORDINATOR) us Scanner OTHER Final Result * ECHO TTE COMPLETE W CONTRAST (11/06/2024 5:01 PM ON SITE COORDINATOR) AORTIC VALVE MEAN PG 2 mmHg LVEDD 3.7 cm EJECTION FRACTION 60 - 65% Anatomical Region Laterality Modality Ultrasound 11/06/2024 3:46 PM ON SITE COORDINATOR Narrative 11/06/2024 5:03 PM ON SITE COORDINATOR ECHOCARDIOGRAM FELIX OJEDA : 1940 83 years Study Date: 11/06/2024 3:46:27 PM Gender: M BP: 170/101 mmHg Height: 182.88 cm BSA: 2.42 m Weight: 123.01 kg Tech: TK Referring MD: VALARIE EDUARDO Site: [facility] Reading Location: [facility] Patient Location: Inpatient. Procedure: 2D w/ Contrast, Color Doppler and Spectral Doppler. Indication for study: Carotid artery stenosis Cardiac Rhythm: Regular.Study quality: Good. Final Impressions: 1. Normal LV size, mildly increased wall thickness, normal global systolic function with an estimated EF of 60 - 65%. 2. Echo contrast was administered to enhance visualization of all left ventricular segments. 3. Right ventricular cavity size is not well visualized, global systolic RV function is normal. 4. Normal left atrium size. 5. The aortic valve is trileaflet and sclerotic, no stenosis and trivial regurgitation. 6. The mitral valve is sclerotic, no mitral regurgitation. 7. Tricuspid valve is normal. 8. The aortic sinus is normal for age/sex/bsa with a maximal diameter of 3.8 cm. 9. No pericardial effusion. Chamber Sizes and Function Normal left ventricular size, mildly increased wall thickness, normal global systolic function with an estimated EF of 60 - 65%. No resting regional wall motion abnormality visualized. Left atrial size is normal. Right ventricular cavity size is not well visualized, global systolic RV function is normal. The right atrium is not well visualized. The pulmonary artery is of normal size and origin. The sinus of Valsalva is normal for age/sex/bsa. The ascending aorta is normal sized. Valves, RV Pressures and Diastolic Function The aortic valve is trileaflet and sclerotic, no stenosis and trivial regurgitation. The mitral valve is sclerotic, no mitral regurgitation. Diastolic function assessment not performed. The tricuspid valve is normal in structure. Tricuspid regurgitation is regurgitation is not evident. The pulmonic valve is normal. Trace pulmonary regurgitation. Masses, Effusion, Shunts There is no pericardial effusion. The inferior vena cava is not well visualized. No left to right shunting was detected by limited color flow Doppler interrogation of the interatrial septum. MEASUREMENTS AND CALCULATIONS 2-D Measurements and LV Function: LVID (d) 3.7 cm LV FS% (2D) 35 % LVID (s) 2.4 cm LVOT diameter 2.2 cm IVS (d) 1.2 cm HR 91 bpm LVPW (d) 1.1 cm Ao Sinus 3.8 cm Asc Ao 3.5 cm Aortic Valve: Vmax 1.0 m/s TREVON (V) 2.91 cm VTI 0.20 m TREVON (I) 2.76 cm LVOT V max 0.8 m/s Max PG 4 mmHg LVOT VTI 0.14 m Mean PG 2 mmHg SV 54 ml Dim Index 0.73 SV index 22 ml/m CO 4.9 l/min CI 2.0 l/min/m Tricuspid Valve and estimated PA pressures: TAPSE 1.9 cm Contrast documentation: 2 ml diluted Definity, lot #[id number], [facility]# [id number] was administered peripherally to enhance visualization of all left ventricular segments. . This study was interpreted by an [facility] accredited facility. Final Procedure Note Cassie Dennison, [facility] - 11/06/2024 ECHOCARDIOGRAM FELIX OJEDA : 1940 83 years Study Date: 11/06/2024 3:46:27 PM Gender: M BP: 170/101 mmHg Height: 182.88 cm BSA: 2.42 m Weight: 123.01 kg Tech: TK Referring MD: VALARIE EDUARDO Site: [facility] Reading Location: [facility] IP Patient Location: Inpatient. Procedure: 2D w/ Contrast, Color Doppler and Spectral Doppler. Indication for study: Carotid artery stenosis Cardiac Rhythm: Regular.Study quality: Good. Final Impressions: 1. Normal LV size, mildly increased wall thickness, normal globalsystolic function with an estimated EF of 60 - 65%. 2. Echo contrast was administered to enhance visualization of all leftventricular segments. 3. Right ventricular cavity size is not well visualized, global systolicRV function is normal. 4. Normal left atrium size. 5. The aortic valve is trileaflet and sclerotic, no stenosis and trivialregurgitation. 6. The mitral valve is sclerotic, no mitral regurgitation. 7. Tricuspid valve is normal. 8. The aortic sinus is normal for age/sex/bsa with a maximal diameter of3.8 cm. 9. No pericardial effusion. Chamber Sizes and Function Normal left ventricular size, mildly increased wall thickness, normalglobal systolic function with an estimated EF of 60 - 65%. No restingregional wall motion abnormality visualized. Left atrial size is normal.Right ventricular cavity size is not well visualized, global systolic RVfunction is normal. The right atrium is not well visualized. The pulmonaryartery is of normal size and origin. The sinus of Valsalva is normal forage/sex/bsa. The ascending aorta is normal sized. Valves, RV Pressures and Diastolic Function The aortic valve is trileaflet and sclerotic, no stenosis and trivialregurgitation. The mitral valve is sclerotic, no mitral regurgitation.Diastolic function assessment not performed. The tricuspid valve is normalin structure. Tricuspid regurgitation is regurgitation is not evident. Thepulmonic valve is normal. Trace pulmonary regurgitation. Masses, Effusion, Shunts There is no pericardial effusion. The inferior vena cava is not wellvisualized. No left to right shunting was detected by limited color flowDoppler interrogation of the interatrial septum. MEASUREMENTS AND CALCULATIONS 2-D Measurements and LV Function: LVID (d) 3.7 cm LV FS% (2D) 35 % LVID (s) 2.4 cm LVOT diameter 2.2 cm IVS (d) 1.2 cm HR 91 bpm LVPW (d) 1.1 cm Ao Sinus 3.8 cm Asc Ao 3.5 cm Aortic Valve: Vmax 1.0 m/s TREVON (V) 2.91 cm VTI 0.20 m TREVON (I) 2.76 cm LVOT V max 0.8 m/s Max PG 4 mmHg LVOT VTI 0.14 m Mean PG 2 mmHg SV 54 ml Dim Index 0.73 SV index 22 ml/m CO 4.9 l/min CI 2.0 l/min/m Tricuspid Valve and estimated PA pressures: TAPSE 1.9 cm Contrast documentation: 2 ml diluted Definity, lot #[id number], [facility]#[id number] was administered peripherally to enhance visualization of allleft ventricular segments. . This study was interpreted by an [facility] accredited facility. Final us Valarie Eduardo MD ECHO ORD Fin al Result * IR ANGIO NEURO-INTERVENTIONAL (11/06/2024 1:35 PM ON SITE COORDINATOR) Anatomical Region Laterality Modality X-Ray Angiograph y Narrative 11/06/2024 6:09 PM ON SITE COORDINATOR Neurointerventional Operative Report Patient: Felix Ojeda (1940), Date: 11/06/2024 Physician(s): Raad Darling MD Procedure(s): Mechanical thrombectomy: Right middle cerebral artery and cervical internal carotid artery occlusions (CPT 21394) Carotid artery angioplasty and stenting without embolic protection device (CPT 53803) Ultrasound guided vascular access: Right common femoral artery (CPT +96906) Pre-operative diagnosis (indication): Acute ischemic stroke due to large vessel occlusion. 83-year-old man with left hemiparesis and aphasia; NIHSS 14. IV-tPA not administered. CTA confirms an occlusion of an M2 segment branch of the right MCA and occlusion of the cervical right internal carotid artery with a favorable ASPECTS (10). Post-operative diagnosis: Same. Anesthesia: Local 1% Lidocaine only. Continuous cardiorespiratory monitoring was performed by a nurse trained in conscious sedation. Consent: Emergency consent; family not available. Time-out: Deferred due to the emergent nature of the procedure. Description: The patient was placed in the supine position on the angiography table. Both groins were sterilely prepped and draped. Lidocaine 1% was used for local anesthesia. Ultrasound evaluation of the right groin for potential access site was performed. After successfully identifying a patent right common femoral artery, the vessel was accessed with a micropuncture set using realtime ultrasound guidance, and an 8F sheath was inserted (ARTERIAL PUNCTURE TIME: 1219). A permanent recording was created for the patient record. A 90 cm 088 Neuron MAX long sheath with an inner ET WaterumbQewz Select Dowling catheter was used to selectively catheterize the distal right common carotid artery. DSA imaging of the cervical vessels was performed, revealing complete occlusion of the cervical right internal carotid artery just distal to the level of the carotid bulb. At this juncture, an exchange length glidewire was advanced through the inner diagnostic catheter and ultimately navigated into the distal cervical right internal carotid artery. Then, a 4mm x 20mm Automotive Parts Manager angioplasty balloon was advanced over the wire and balloon angioplasty of the occluded segment was performed. DSA imaging of the cervical and cranial vessels was then performed (TIME OF INITIAL CLOT IDENTIFICATION: 1240). A RED62 aspiration catheter was advanced over a RED43 aspiration catheter over an Jeremi 024 microwire into the right middle cerebral artery. Direct aspiration was performed on the face of the clot using the ADAPT technique (TIME OF FIRST PASS: 1245). Initial post-thrombectomy angiography showed TICI 3 reperfusion (TIME OF INITIAL/FINAL REPERFUSION: 1245). At this point, we advanced an exchange length Synchro microwire through the RED62 and then removed the RED62 from the body. DSA imaging of the cervical right internal carotid artery was performed which revealed highly irregular severe stenosis of the proximal cervical right internal carotid artery in which it was deemed necessary to stent. The nurse then placed a nasogastric tube and administered 180mg Brilinta and 325mg ASA by way of the tube. We then performed balloon angioplasty of the stenosis utilizing a 4mm x 20mm Morgan balloon. Subsequently, stenting of the stenotic segment was performed with a 6mm x 40mm Protege stent. DSA imaging of the cervical right ICA then revealed improved caliber of the stented segment with narrowing in the most distal stented segment which was felt to reflect vasospasm. The catheters and sheath were removed. Hemostasis was achieved using an 8F AngioSeal device after right femoral angiography. A sterile dressing was applied. Complications: None Findings: As above Specimens: None Estimated blood loss: 100 mL Medications: As above Fluoroscopy time: 30 minutes. Impression: Successful mechanical thrombectomy of the right middle cerebral artery resulting in TICI 3 reperfusion. In addition, emergent stenting of the right carotid artery, without a distal embolic protection device, was performed. Raad Darling M.D. Neurointerventional Radiologist [facility] Pager: Office/Appointments: Answering Service: [facility] Transfer Center: [email or web address] us Raad Darling MD IR Fin al Result * ETHANOL SERUM OR PLASMA (11/06/2024 10:08 AM ON SITE COORDINATOR) ETHANOL <0.010 <0.010 g/dL 11/06/2024 10:33 AM ON SITE COORDINATOR [facility] Blood BLOOD SPECIMEN / Unknown Butterfly / Unknown 11/06/2024 10:08 AM ON SITE COORDINATOR 11/06/2024 10:13 AM ON SITE COORDINATOR us Jakub Contreras MD CHEMISTRY Fin al Result [facility] [address], [place] [id number] * (ABNORMAL) PROTIME- INR (11/06/2024 10:08 AM ON SITE COORDINATOR) INR 1.3(H) <1.3 11/06/2024 10:23 AM ON SITE COORDINATOR [facility] PROTIME 14.7(H) 10.6 - 12.4 sec 11/06/2024 10:23 AM [facility] Blood BLOOD SPECIMEN / Unknown Butterfly / Unknown 11/06/2024 10:08 AM ON SITE COORDINATOR 11/06/2024 10:13 AM [facility] - 11/06/2024 10:23 AM [facility] Therapeutic Range 2.0-3.0 for most anticoagulated patients 2.5-3.5 or 4.0 for high risk patients The INR is only used for patients on stable oral anticoagulant therapy. It makes no significant contribution to the diagnosis or treatment of patients whose Protime is prolonged for other reasons. INR results are increased when heparin levels exceed 1.0 U/mL, which corresponds to an aPTT >125 seconds if the patient is on UFH. us Jakub Contreras MD HEMATOLOGY Fin al Result [facility] [address] [place] [address] * (ABNORMAL) BASIC METABOLIC PANEL (11/06/2024 10:08 AM [facility]) SODIUM 137 136 - 145 mmol/L 11/06/2024 10:34 AM [facility] POTASSIUM 4.3 3.5 - 5.1 mmol/L 11/06/2024 10:34 AM [facility] CHLORIDE 104 98 - 107 mmol/L 11/06/2024 10:34 AM [facility] CO2,TOTAL 23 22 - 29 mmol/L 11/06/2024 10:34 AM [facility] ANION GAP 10 5 - 18 11/06/2024 10:34 AM [facility] GLUCOSE 118(H) 70 - 99 mg/dL 11/06/2024 10:34 AM [facility] CALCIUM 8.9 8.8 - 10.4 mg/dL 11/06/2024 10:34 AM [facility] Comment: Reference ranges for this test were updated on 09/22/2024 to reflect our healthy population more accurately. Reference range changes are not retroactively applied to results, but previous results using the same methodology can be interpreted in the context of the new reference range. BUN 15 8 - 23 mg/dL 11/06/2024 10:34 AM [facility] CREATININE 1.16 0.70 - 1.20 mg/dL 11/06/2024 10:34 AM [facility] BUN/CREAT RATIO 13 10 - 20 4 10:34 AM [facility] eGFR 63(L) >90 mL/min/1. 73m2 11/06/2024 10:34 AM [facility] Comment:As of 2022, eG FR is calculated by the CKD-EPI creatinine equation without race adjustment. eGFR can be influenced by muscle mass, exercise, and diet. The reported eGFR is an estimation only and is only applicable if the renal function is stable. Blood BLOOD SPECIMEN / Unknown Butterfly / Unknown 11/06/2024 10:08 AM ON SITE COORDINATOR 11/06/2024 10:13 AM ON SITE COORDINATOR Jakub Contreras MD CHEMISTRY Fin al Result [facility] [address] [place] [address] * CT HEAD STROKE PROTOCOL WITHOUT CONTRAST Thrombolytic Candidate (11/06/2024 10:05 AM ON SITE COORDINATOR) Anatomical Region Laterality Modality BRAIN Computed Tomogra phy 11/06/2024 10:1 2 AM ON SITE COORDINATOR Impressions 11/06/2024 10:12 AM ON SITE COORDINATOR Involutional changes. No acute-appearing findings. Old left occipital infarct. No hemorrhage. Please note that all CT scans at this facility use dose modulation, iterative reconstruction, and/or weight-based dosing when appropriate to reduce radiation dose to as low as reasonably achievable. Dictated by Nasim Varela MD @ 11/06/2024 10:12:17 AM (Electronically Signed) Narrative 11/06/2024 10:12 AM ON SITE COORDINATOR For Patients: As a result of the Century Cures Act, medical imaging exams and procedure reports are released immediately into your electronic medical record. You may view this report before your referring provider. If you have questions, please contact your health care provider. INDICATION: Neurologic dysfunction. COMPARISON: October 18, 2023 TECHNIQUE: CT examination of the head was performed as axial sections without intravenous contrast. Images were obtained from the vertex of the skull through the skull base. Please note that all CT scans at this facility use dose modulation, iterative reconstruction, and/or weight-based dosing when appropriate to reduce radiation dose to as low as reasonably achievable. FINDINGS: The brain shows no sign of mass lesion, mass effect, hemorrhage, or edema. There are involutional changes. There is moderate to severe cortical atrophy and there is moderate white matter disease. There is no hydrocephalus. The visualized portions of the orbits are normal in appearance. The osseous structures are normal in appearance with no sign of abnormality in the skull base or calvarium. There is left occipital encephalomalacia. No substantial change since the prior study I discussed the above findings with Dr. Contreras at 10:10 a.m. on November 06, 2024 Procedure Note Nasim Varela MD - 11/06/2024 For Patients: As a result of the Cures Act, medical imagingexams and procedure reports are released immediately into your electronicmedical record. You may view this report before your referring provider.If you have questions, please contact your health care provider. INDICATION: Neurologic dysfunction. COMPARISON: October 18, 2023 TECHNIQUE: CT examination of the head was performed as axial sections withoutintravenous contrast. Images were obtained from the vertex of the skullthrough the skull base. Please note that all CT scans at this facility use dose modulation,iterative reconstruction, and/or weight-based dosing when appropriate toreduce radiation dose to as low as reasonably achievable. FINDINGS: The brain shows no sign of mass lesion, mass effect, hemorrhage, or edema. There are involutional changes. There is moderate to severe corticalatrophy and there is moderate white matter disease. There is nohydrocephalus. The visualized portions of the orbits are normal in appearance. The osseous structures are normal in appearance with no sign ofabnormality in the skull base or calvarium. There is left occipital encephalomalacia. No substantial change since the prior study I discussed the above findings with Dr. Contreras at 10:10 a.m. on 2023 IMPRESSION: Involutional changes. No acute-appearing findings. 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 No hemorrhage. Please note that all CT scans at this facility use dose modulation,iterative reconstruction, and/or weight-based dosing when appropriate toreduce radiation dose to as low as reasonably achievable. Dictated by Nasim Varela MD @ 11/06/2024 10:12:17 AM (Electronically Signed) Jakub Contreras MD CT Fin al Result * CT ANGIO HEAD NECK CAROTID STROKE PROTOCOL ROLF CANDIDAT (11/06/2024 10:00 AM ON SITE COORDINATOR) Anatomical Region Laterality Modality BRAIN, NECK Computed Tomogra phy 11/06/2024 10:3 3 AM ON SITE COORDINATOR Impressions 11/06/2024 10:33 AM ON SITE COORDINATOR 1. 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 Patient is being transferred in consideration of emergent mechanical thrombectomy. 2. Chronic left carotid occlusion. Please note that all CT scans at this facility use dose modulation, iterative reconstruction, and/or weight-based dosing when appropriate to reduce radiation dose to as low as reasonably achievable. Dictated by Manolo Saldana MD @ 11/06/2024 10:33:12 AM (Electronically Signed) Narrative 11/06/2024 10:33 AM ON SITE COORDINATOR For Patients: As a result of the Cures Act, medical imaging exams and procedure reports are released immediately into your electronic medical record. You may view this report before your referring provider. If you have questions, please contact your health care provider. INDICATION: Acute stroke. TECHNIQUE: CTA head with contrast bolus tracking, 3D angiographic rendering using maximum intensity projection (MIP) and images permanently archived. CTA neck with contrast bolus tracking, 3D angiographic rendering using maximum intensity projection (MIP) and images permanently archived. Comparison: 10/04/2021. FINDINGS: CTA head: There is a thromboembolic occlusion of the posterior division of the right MCA (M2). CTA neck: The right ICA is occluded proximally due to advanced atherosclerotic disease. The left carotid is chronically occluded. There is no significant vertebral artery stenosis or dissection. Procedure Note Manolo Saldana MD - 11/06/2024 For Patients: As a result of the Cures Act, medical imagingexams and procedure reports are released immediately into your electronicmedical record. You may view this report before your referring provider.If you have questions, please contact your health care provider. INDICATION: Acute stroke. TECHNIQUE: CTA head with contrast bolus tracking, 3D angiographic rendering usingmaximum intensity projection (MIP) and images permanently archived. CTA neck with contrast bolus tracking, 3D angiographic rendering usingmaximum intensity projection (MIP) and images permanently archived. Comparison: 10/04/2021. FINDINGS: CTA head: There is a thromboembolic occlusion of the posterior division ofthe right MCA (M2). CTA neck: The right ICA is occluded proximally due to advancedatherosclerotic disease. The left carotid is chronically occluded. Thereis no significant vertebral artery stenosis or dissection. IMPRESSION: 1. 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 Patient is being transferredin consideration of emergent mechanical thrombectomy. 2. Chronic left carotid occlusion. Please note that all CT scans at this facility use dose modulation,iterative reconstruction, and/or weight-based dosing when appropriate toreduce radiation dose to as low as reasonably achievable. Dictated by Manolo Saldana MD @ 11/06/2024 10:33:12 AM (Electronically Signed) Jakub Contreras MD CT Fin al Result from Last 3 Months [place] [address] [employer] [place] BLUE MR PB ONLY MEDICARE PART A HB ONLY MEDICARE PART B HB ONLY [place] [address] MEDICARE PART A HB ONLY MEDICARE PART B HB ONLY MR BC [place] [facility] Advance Directives Documents on File Type Date Recorded Patient Roller Checker Expl anation Healthcare Directive 12/18/2021 022 * DNR (Latest Code Status on File) Date Activated Date Inactivated Comments 11/06/2024 2:26 PM 11/17/2024 10:21 AM Question Answer Comments Code Status Discussion: Unable to Assess Preferences, Provider to review later * Full Code Date Activated Date Inactivated Comments 03/03/2015 10:12 AM 03/06/2015 4:15 PM Care Teams Kiln Stoker Relationship Specialty Start Date End Date Ronn Roberts MD [address] [place] [address] PCP - General Family Practice 09/26/17
--- OUTSIDE RECORDS SUMMARY | 2024-11-19 14:06 | XMS_ITS | Clinical Summary ---
Author Organization [place] [facility] Address [address] [place] [id number] Care Team Providers Care Back End Web Developer Name Role Phone Ronn Roberts MD Primary Care Provider [phone] Ronn Robetrs MD Unavailable Allergies No known active allergies Immunizations Name Administration Dates Next Due COVID-19 MONOVALENT 12+ (Pfizer) 01/07/2021,11/20 Social History Tobacco Use Types Packs/Day Years Used Date Smoking Tobacco: Never Assessed Adolescent Education Answer Date Record ed Getting School Help Needed Not on file 08/10 Sex and Gender Information Value Date Recorded Sex Assigned at Not on file 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 Gender Identity Not on file Sexual Orientation Not on file Last Filed Vital Signs Vital Sign Reading Time Taken Comments Blood Pressure 139/84 02/09/2022 3:45 PM CDT Pulse 71 02/09/2022 3:45 PM CDT Temperature 36.9 C (98.5 F) 02/09/2022 1:34 PM CDT Respiratory Rate 20 02/09/2022 1:34 PM CDT Oxygen Saturation 98% 02/09/2022 3:15 PM CDT Inhaled Oxygen Concentration - - Weight - - Height - - Body Mass Index - - Plan of Treatment Health Maintenance Due Date Last Done Comments ADVANCE CARE PLANNING 1940 ANNUAL REVIEW OF HM ORDERS 1940 FALL RISK ASSESSMENT 2006 MEDICARE ANNUAL WELLNESS VISIT 2006 ZOSTER IMMUNIZATION (2 of 3) 05/19/2012 03/24/2012 RSV VACCINE (1 - 1-dose 75+ series) 2016 PHQ-2 (once per calendar year) 2023 COVID-19 Vaccine ( season) 2024 08/21/2021, 01/07/2021, 12/17/2020 INFLUENZA VACCINE (#1) 2024 , 11/05/2020, 09/21/2019, Additional history exists DTAP/TDAP/TD IMMUNIZATION (2 - Td or Tdap) 09/04/2026 09/04/2016, 07/13/2008 Pneumococcal Vaccine: 50+ Years Completed 04/03/2016, 03/24/2012 HPV IMMUNIZATION Aged Out No longer e ligible based on patient's age to complete this topic MENINGITIS IMMUNIZATION Aged Out No l onger eligible based on patient's age to complete this topic RSV MONOCLONAL ANTIBODY Aged Out No l onger eligible based on patient's age to complete this topic Insurance MEDICARE MEDICARE BC [place] Care Teams Back End Web Developer Relationship Specialty Start Date End Date Ronn Roberts MD [address] [place] [address] PCP - General Family Medicine 02/09/22 Ronn Roberts MD [address] [place] [address] Family Medicine 02/09/22
--- OUTSIDE RECORDS SUMMARY | 2024-11-19 14:06 | XMS_ITS | Referral Summary ---
Author Organization [facility] Address [address] [place] [address] Care Team Providers Care Official Court Reporter Name Role Phone Ronn Roberts MD Primary Care Provider [phone] Ronn Roberts MD Unavailable Allergies No known active allergies Immunizations Name Administration Dates Next Due COVID-19 MONOVALENT 12+ (Pfizer) 01/07/2021,11/20 Social History Tobacco Use Types Packs/Day Years Used Date Smoking Tobacco: Never Assessed Adolescent Education Answer Date Record ed Getting School Help Needed Not on file 08/10 Sex and Gender Information Value Date Recorded Sex Assigned at Not on file 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
--- OUTSIDE RECORDS SUMMARY | 2024-11-19 14:06 | XMS_ITS | Encounter Summary ---
Author Organization [place] [facility] Address [address] [place] [address]. 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 No / Unsure 02/09/2022 1:33 PM CDT documented as of this encounter Plan of Treatment Not on file documented as of this encounter Visit Diagnoses Not on filedocumented in this encounter Care Teams Big Data Platform Architect Relationship Specialty Start Date End Date Ronn Roberts MD [address] [facility] [place] [address] PCP - General Family Medicine 02/09/22 Ronn Roberts MD [address] [facility] [place] [address] Family Medicine 02/09/22 documented as of this encounter
--- NOTE | 2024-11-19 14:12 | CRLHL7_ITS ---
For Patients: As a result of the Century Cures Act, medical imaging exams and procedure reports are released immediately into your electronic medical record. You may view this report before your referring provider. If you have questions, please contact your health care provider. INDICATION: Fall, hit head. TECHNIQUE: Head CT without contrast. COMPARISON: CT brain dated 11/12/2024. FINDINGS: Redemonstrated right frontoparietal centrum semiovale and left TRANSPORT RN territory encephalomalacia. Otherwise, moderate diffuse parenchymal volume loss with. There are other nonspecific low attenuation white matter changes consistent with chronic microvascular disease. No sign of mass, hemorrhage, or midline shift. Skull base and calvarium: The visualized paranasal sinuses and mastoid air cells demonstrate no acute or significant findings. The visualized orbits are grossly unremarkable. No skull fractures. Left frontal scalp swelling. IMPRESSION: No acute findings. Please note that all CT scans at this facility use dose modulation, iterative reconstruction, and/or weight-based dosing when appropriate to reduce radiation dose to as low as reasonably achievable. Dictated by Benoit Mendoza MD @ 11/19/2024 2:53:57 PM (Electronically Signed)
--- NOTE | 2024-11-19 14:15 | CRLHL7_ITS ---
For Patients: As a result of the Cures Act, medical imaging exams and procedure reports are released immediately into your electronic medical record. You may view this report before your referring provider. If you have questions, please contact your health care provider. INDICATION: Fell and hit head. TECHNIQUE: CT cervical spine without contrast. COMPARISON: None FINDINGS: Vertebral alignment: Straightening of the cervical spine which may be seen with positioning or muscle spasm. Vertebrae: There are no fractures or suspicious bony lesions. Discs and facet joints: Bridging of the vertebral bodies at C5, C6 and C7 with marginal spurring. Moderate C4-5 with mild C2-3 and C3-4 disc space narrowing. Extraspinal findings: Prevertebral soft tissues, visualized airway, and visualized lungs are unremarkable. Ossifications ligamentum nuchae. IMPRESSION: No acute cervical abnormalities. Please note that all CT scans at this facility use dose modulation, iterative reconstruction, and/or weight-based dosing when appropriate to reduce radiation dose to as low as reasonably achievable. Dictated by Jay Mccarty MD @ 11/19/2024 2:44:22 PM (Electronically Signed)
[2024-11-19 14:17] VITALS: BP 141/78; PULSE 83; RESP 18; TEMP 36.6; O2SAT 98; BMI 28.5
--- NOTE | 2024-11-19 14:31 | ED.FALL ---
HPI - Fall General Chief Complaint: Fall/Minor Trauma Stated Complaint: Fall Time Seen by Provider: 11/19/24 14:19 History of Present Illness HPI Narrative: This 84-year-old male is residing now at [facility] as he is recovering from a stroke. He has some altered speech and weakness related to that. He comes in today by ambulance because he fell as he was transferring and has an abrasion on the left upper side of his head. He does not report any loss of consciousness. He is not reporting any pain. He does not indicate any other injury. Related Data Home Medications ?Medication ?Instructions ?Recorded ?Confirmed memantine 10 mg tablet 10 mg PO BID 11/19/24 11/19/24 metoprolol succinate 50 mg 50 mg PO DAILY 11/19/24 11/19/24 tablet,extended release 24 hr olanzapine 5 mg disintegrating PO 11/19/24 tablet rosuvastatin 20 mg tablet 20 mg PO QPM 11/19/24 11/19/24 ticagrelor 90 mg tablet (Brilinta) 90 mg PO Q12H 11/19/24 11/19/24 Allergies Allergy/AdvReac Type Severity Reaction Status Date / Time No Known Drug Allergies Allergy Verified 11/19/24 14:13 Review of Systems Status of ROS: Reports: 10 or more systems reviewed and unremarkable except as noted in History and below Narrative: Constitutional: No fevers, no weight gain or loss. Eyes: No discharge. No vision changes. HENT: No congestion, no sore throat, no ear pain. Cardiovascular: No chest pain, no palpitations. Respiratory: No shortness of breath, no wheezes, no cough. Gastrointestinal: No abdominal pain, no vomiting, no diarrhea. Genitourinary: No dysuria, no hematuria. Musculoskeletal: Normal range of motion. Skin: No rashes, no pruritis. Neurological: Recent stroke with speech change and weakness. Endo/Heme/Allergies: No bruising or bleeding. No polydipsia. Pysch: no suicidality, no anxiety, no insomnia. All other systems reviewed and are negative. Exam Narrative: Exam Narrative: Constitutional: Well-developed, well-nourished, no acute distress. HEENT: Abrasion in the left parietal region of his head with some mild underlying swelling. Neck: Normal range of motion. Nontender. Supple. Heart: Regular. No murmurs. Normal rate. Intact distal pulses. Lungs: Clear to auscultation. No chest discomfort. No wheezes, rhonchi, or rales. Abdomen: Normal bowel sounds. Nontender. No rebound tenderness. Genitalia: Deferred. Back: No midline tenderness. Normal range of motion. Extremities: Normal range of motion. No injury. Skin: Intact. No rash. Warm. No erythema or pallor. Neurologic: Altered speech secondary to recent CVA. Psychiatric: No suicidality. No anxiety or depression. No insomnia. Nursing notes and vitals signs are reviewed. Const: Vital Signs, click to edit/add: Vital Signs - 24 hr 11/19/24 14:17 Temperature 97.8 F Pulse Rate [Pulse Oximeter] 83 Respiratory Rate 18 Blood Pressure [Ri ght Upper Arm] 141/78 H Pulse Oximetry 98 Oxygen Delivery Me thod Room Air Course Vital Signs Vital signs: Initial Vital Signs Temperature 97.8 F 11/19/24 14:17 Temperature Source Temporal Artery Scan 11/19/24 14:17 Pulse Rate 83 11/19/24 14:17 Respiratory Rate 18 11/19/24 14:17 Blood Pressure 141/78 H 11/19/24 14:17 Blood Pressure Mean 99 11/19/24 14:17 Pulse Oximetry 98 11/19/24 14:17 Oxygen Delivery Method Room Air 11/19/24 14:17 Vital Signs Temperature 97.8 F 11/19/24 14:17 Pulse Rate 83 11/19/24 14:17 Respiratory Rate 18 11/19/24 14:17 Blood Pressure 141/78 H 11/19/24 14:17 Pulse Oximetry 98 11/19/24 14:17 Oxygen Delivery Method Room Air 11/19/24 14:17 Temperature 97.8 F 11/19/24 14:17 Pulse Rate 83 11/19/24 14:17 Respiratory Rate 18 11/19/24 14:17 Blood Pressure 141/78 H 11/19/24 14:17 Pulse Oximetry 98 11/19/24 14:17 Oxygen Delivery Method Room Air 11/19/24 14:17 MDM - Fall MDM Narrative Medical decision making narrative: This patient comes in from [facility] where he is recovering from a stroke that occurred last month. When transferring he slipped and bumped his head. He did not have loss of consciousness. He has an abrasion on his left upper head. He does not report any pain or other injury. CT imaging of the head and C-spine returns with no acute findings. Patient is okay to return back to his current level of care at [facility]. He can resume current plans there. Imaging Data CT Cervical Spine: Radiologist's impression: No acute cervical abnormalities. CT scan - head: Radiologist's impression: No acute findings. Discharge Plan Discharge Clinical Impression: Closed head injury Patient Disposition: Home w/ Parent or Adult Condition: Stable Additional Instructions: Okay to return back to [facility] to resume current plans. Follow up with MD return if worsening. Prescriptions: No Action metoprolol succinate 50 mg tablet extended release 24 hr 50 mg PO DAILY olanzapine 5 mg tablet,disintegrating PO rosuvastatin 20 mg tablet 20 mg PO QPM memantine 10 mg tablet 10 mg PO BID Brilinta 90 mg tablet 90 mg PO Q12H Stand Alone Forms: [employer] Info Instructions
--- OUTSIDE RECORDS SUMMARY | 2024-11-19 15:14 | XMS_ITS | Referral Summary ---
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
--- OUTSIDE RECORDS SUMMARY | 2024-11-19 15:14 | XMS_ITS | Clinical Summary ---
Author Organization [facility] Address [place], [place] [address] Care Team Providers Care Nursing Director Name Role Phone Ronn Roberts MD Primary [...] taking. 90 Tablet 5 4 11:56 AM ORNAMENTAL METAL ERECTOR APPRENTICE 11/09/20 24 Active acetaminophen (TYLENOL) 325 mg [...] or Sleep. 30 Tablet 4 10:43 AM ORNAMENTAL METAL ERECTOR APPRENTICE 11/12/20 24 Active memantine (NAMENDA) 5 mg [...] Department Care Team Description 11/13/2024 Orders Only [facility] [address] [place] [address] Staff, Other Clinical <No scans attached> 11/06/2024 11:56 AM ORNAMENTAL METAL ERECTOR APPRENTICE - 11/17/2024 8:10 AM ORNAMENTAL METAL ERECTOR APPRENTICE Hospital Encounter [facility] [address] [place] [address] Jayleen Mendez MD Jacoby, MD Lyndsay Licea Ashfaq, MD Lefebvre, MD Davon Frias, MD Kvng King, Danisha Slater MD [facility] [place], [facility] Of Right-sided extracranial carotid artery occlusion (Primary Dx); 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 (HC); Pain; HTN (hypertension) Discharge Disposition: Halfway Facility 11/06/2024 9:47 AM ORNAMENTAL METAL ERECTOR APPRENTICE - 11/06/2024 11:19 AM ORNAMENTAL METAL ERECTOR APPRENTICE Emergency [facility] [address] [place] [address] Jakub Contreras MD Cerebrovascular accident (CVA), unspecified mechanism (HC) (Primary Dx) Discharge Disposition: Short Term/PPS Hosp 11/06/2024 Travel 11/04/2024 1:50 PM ORNAMENTAL METAL ERECTOR APPRENTICE Office Visit [facility] [address] [place] [address] Ronn Roberts MD Follow Up (Wound care on front left leg.) 11/04/2024 Travel 10/28/2024 1:30 PM ORNAMENTAL METAL ERECTOR APPRENTICE Nurse/Clinic Staff Only [address] [place] [address] Dressing Change 10/28/2024 Travel 10/21/2024 7:55 AM ORNAMENTAL METAL ERECTOR APPRENTICE Office Visit [facility] [address] [place] [address] Lisa Guo MD Leg Pain/problem (Open Sore - Left leg) 10/21/2024 Travel 09/25/2024 8:45 AM ORNAMENTAL METAL ERECTOR APPRENTICE Nurse/Clinic Staff Only [address] [address] Immunization/Injectio n (Vitamin B12) 09/25/2024 Travel 08/28/2024 8:30 AM CDT Nurse/Clinic Staff Only [address] [address] Immunization/Injectio n (B12) 08/28/2024 Travel from Last 3 Months Immunizations Name Administration Dates Next Due COVID-19 vaccine ([employer] 30mcg/0.3mL) PF, MDV 01/07/2021,12/17/2020 Influenza, High-dose Inactivated [...] drink = 0.6 oz pur e alcohol) [facility] Utilities Answer Date Recorded Do you have [...] on file Legal Sex Male 5:23 AM ORNAMENTAL METAL ERECTOR APPRENTICE Gender Identity Not on file Sexual Orientation Not on file Obstetrics History Last Filed Vital Signs Vital Sign Reading Time Taken Comments Blood Pressure 114/63 11/17/2024 5:47 AM ORNAMENTAL METAL ERECTOR APPRENTICE Pulse 76 11/17/2024 5:47 AM ORNAMENTAL METAL ERECTOR APPRENTICE Temperature 36.6 C (97.8 F) 11/17/2024 5:47 AM ORNAMENTAL METAL ERECTOR APPRENTICE Respiratory Rate 18 11/17/2024 5:47 AM ORNAMENTAL METAL ERECTOR APPRENTICE Oxygen Saturation 94% 11/17/2024 5:47 AM ORNAMENTAL METAL ERECTOR APPRENTICE Inhaled Oxygen Concentration - - Weight 120.4 kg (265 lb 6.9 oz) 11/07/2024 2:00 AM ORNAMENTAL METAL ERECTOR APPRENTICE Height 182.9 cm (6') 11/06/2024 10:12 AM ORNAMENTAL METAL ERECTOR APPRENTICE Body Mass Index 36 11/06/2024 10:12 AM ORNAMENTAL METAL ERECTOR APPRENTICE Plan of Treatment Upcoming Encounters Date Type Department Care Team (Late st Contact Info) Description 11/27/2024 1:00 PM ORNAMENTAL METAL ERECTOR APPRENTICE Nurse/Clinic Staff Only [facility] [address] [place] [address] 12/08/2024 1:30 PM ORNAMENTAL METAL ERECTOR APPRENTICE Appointment [facility] [address] [place] [address] 12/09/2024 2:00 PM ORNAMENTAL METAL ERECTOR APPRENTICE Phone Office Visit [facility] [address] [place] [phone] Raad Darling MD [address] [place] [address] 02/09/2025 11:00 AM CDT Appointment [facility] [address] [place] [address] 02/10/2025 2:00 PM CDT Phone Office Visit [facility] [address] [place] [phone] Raad Darling MD [address] [place] [address] Health Maintenance Due Date Last Done Comments [...] history exists Medical Devices Implanted Type Area Can Sorter Device Identifier Shelf Expiration Date Model / Serial / Lot [id number] - [id number] Implanted:Qty: 1 on 03/03/2015 by Jay Nuñez MD at [facility] Total Joint Right: Knee DEPUY 03/17/2024 0 / / [id number] Description:SIGMA FEMORAL PO STERIOR STABILIZED CEMENTED SIZE 5 RIGHT [id number] - [id number] Implanted:Qty: 1 on 03/03/2015 by Jay Nuñez MD at [facility] Total Joint Right: Knee DEPUY 01/15/2025 0 / / [id number] Description:P.F.C. SIGMA TIB IAL TRAY FIXED BEARING MODULAR COCR 5 [id number] - [id number] Implanted:Qty: 1 on 03/03/2015 by Jay Nuñez MD at [facility] Total Joint Right: Knee DEPUY 09/17/2019 [id number] / / [id number] Description:OVAL DOME PATELL A 3-PEG, 41MM Cement Simplex P#[id number] * - [id number] Implanted:Qty: 1 on 03/03/2015 by Jay Nuñez MD at [facility] D-[employer] 07/18/2017 [id number] 0 / / [id number] - [id number] Implanted:Qty: 1 on 03/03/2015 by Jay Nuñez MD at [facility] Right: Knee DEPUY 03/17/2019 8 / / [id number] Description:PFC SIGMA TIBIAL INSERT FIXED BEARING STAB Procedures Procedure Name Priority Date/Time Associated Diagnosis Comments GLUCOSE METER Timed 11/16/2024 9:42 PM ORNAMENTAL METAL ERECTOR APPRENTICE GLUCOSE METER Timed 11/16/2024 12:42 PM ORNAMENTAL METAL ERECTOR APPRENTICE WHITE BLOOD COUNT Early AM 11/15/2024 8:0 6 AM ORNAMENTAL METAL ERECTOR APPRENTICE PLATELET COUNT Timed 11/15/2024 8:06 AM ORNAMENTAL METAL ERECTOR APPRENTICE CREATININE Early AM 11/14/2024 6:12 AM ORNAMENTAL METAL ERECTOR APPRENTICE POTASSIUM Early AM 11/14/2024 6:12 AM ORNAMENTAL METAL ERECTOR APPRENTICE SODIUM Early AM 11/14/2024 6:12 AM ORNAMENTAL METAL ERECTOR APPRENTICE WHITE BLOOD COUNT Early AM 11/14/2024 6:1 2 AM ORNAMENTAL METAL ERECTOR APPRENTICE CBC WITH AUTO DIFFERENTIAL STAT 11/13/2024 4:25 AM ORNAMENTAL METAL ERECTOR APPRENTICE COMP METABOLIC PANEL STAT 11/13/2024 4:25 AM ORNAMENTAL METAL ERECTOR APPRENTICE CBC WITH AUTO DIFFERENTIAL STAT 11/13/2024 4:25 AM ORNAMENTAL METAL ERECTOR APPRENTICE MAGNESIUM STAT 11/13/2024 4:25 AM ORNAMENTAL METAL ERECTOR APPRENTICE BLOOD GAS,VENOUS STAT 11/13/2024 4:25 AM ORNAMENTAL METAL ERECTOR APPRENTICE GLUCOSE METER Timed 11/13/2024 4:09 AM ORNAMENTAL METAL ERECTOR APPRENTICE GLUCOSE METER Timed 11/12/2024 9:32 PM ORNAMENTAL METAL ERECTOR APPRENTICE CT HEAD BRAIN WO STAT 11/12/2024 9:25 PM ORNAMENTAL METAL ERECTOR APPRENTICE BLOOD CULTURE STAT 11/12/2024 7:45 PM ORNAMENTAL METAL ERECTOR APPRENTICE BLOOD CULTURE STAT 11/12/2024 7:45 PM ORNAMENTAL METAL ERECTOR APPRENTICE EKG 12 LEAD STAT 11/12/2024 7:41 PM ORNAMENTAL METAL ERECTOR APPRENTICE BLOOD GAS,VENOUS STAT 11/12/2024 7:22 PM ORNAMENTAL METAL ERECTOR APPRENTICE LACTATE VENOUS STAT 11/12/2024 7:22 PM ORNAMENTAL METAL ERECTOR APPRENTICE XR CHEST 1 VIEW PORTABLE Routine 11/12/2024 7:20 PM ORNAMENTAL METAL ERECTOR APPRENTICE UA W/ SEDIMENT EXAM REFLEXED PER CRITERIA Today 11/12/2024 6:48 PM ORNAMENTAL METAL ERECTOR APPRENTICE COMP METABOLIC PANEL Today 11/12/2024 5:43 PM ORNAMENTAL METAL ERECTOR APPRENTICE CBC W PLT NO DIFF Today 11/12/2024 5:4 3 PM ORNAMENTAL METAL ERECTOR APPRENTICE PLATELET COUNT Timed 11/12/2024 7:08 AM ORNAMENTAL METAL ERECTOR APPRENTICE PLATELET COUNT Timed 11/09/2024 6:02 AM ORNAMENTAL METAL ERECTOR APPRENTICE SCAN-CARDIAC STRIP 11/09/2024 1: 18 AM ORNAMENTAL METAL ERECTOR APPRENTICE GLUCOSE METER Timed 11/08/2024 8:18 AM ORNAMENTAL METAL ERECTOR APPRENTICE CBC W PLT NO DIFF Early AM 11/08/2024 7:4 2 AM ORNAMENTAL METAL ERECTOR APPRENTICE SCAN-CARDIAC STRIP 11/08/2024 2: 29 AM ORNAMENTAL METAL ERECTOR APPRENTICE GLUCOSE METER Timed 11/08/2024 2:00 AM ORNAMENTAL METAL ERECTOR APPRENTICE GLUCOSE METER Timed 11/07/2024 9:46 PM ORNAMENTAL METAL ERECTOR APPRENTICE SCAN-CARDIAC STRIP 11/07/2024 5: 59 PM ORNAMENTAL METAL ERECTOR APPRENTICE MR HEAD BRAIN WO Routine 11/07/2024 3:44 PM ORNAMENTAL METAL ERECTOR APPRENTICE GLUCOSE METER Timed 11/07/2024 2:07 PM ORNAMENTAL METAL ERECTOR APPRENTICE SCAN-CARDIAC STRIP 11/07/2024 12 :02 PM ORNAMENTAL METAL ERECTOR APPRENTICE GLUCOSE METER Timed 11/07/2024 10:13 AM ORNAMENTAL METAL ERECTOR APPRENTICE XR ABDOMEN 1 VIEW PORTABLE Routine 11/07/2024 8:22 AM ORNAMENTAL METAL ERECTOR APPRENTICE XR ABDOMEN 1 VIEW PORTABLE STAT 11/07/2024 5:35 AM ORNAMENTAL METAL ERECTOR APPRENTICE HEMOGLOBIN A1C Early AM 11/07/2024 4:39 AM ORNAMENTAL METAL ERECTOR APPRENTICE LIPID PANEL Early AM 11/07/2024 4:39 AM ORNAMENTAL METAL ERECTOR APPRENTICE GLUCOSE METER Timed 11/07/2024 1:56 AM ORNAMENTAL METAL ERECTOR APPRENTICE GLUCOSE METER Timed 11/06/2024 8:52 PM ORNAMENTAL METAL ERECTOR APPRENTICE SCAN-CARDIAC STRIP 11/06/2024 8: 00 PM ORNAMENTAL METAL ERECTOR APPRENTICE ECHO TTE COMPLETE W CONTRAST Routine 11/06/2024 5:01 PM ORNAMENTAL METAL ERECTOR APPRENTICE EKG 12 LEAD STAT 11/06/2024 2:32 PM ORNAMENTAL METAL ERECTOR APPRENTICE IR ANGIO NEURO-INTERVENTIONAL STAT 11/06/2024 1:35 PM ORNAMENTAL METAL ERECTOR APPRENTICE EKG 12 LEAD STAT 11/06/2024 10:26 AM ORNAMENTAL METAL ERECTOR APPRENTICE CBC WITH AUTO DIFFERENTIAL STAT 11/06/2024 10:08 AM ORNAMENTAL METAL ERECTOR APPRENTICE ETHANOL SERUM OR PLASMA STAT 11/06/2024 10:08 AM ORNAMENTAL METAL ERECTOR APPRENTICE BASIC METABOLIC PANEL STAT 11/06/2024 10:08 AM ORNAMENTAL METAL ERECTOR APPRENTICE PROTIME-INR STAT 11/06/2024 10:08 AM ORNAMENTAL METAL ERECTOR APPRENTICE CBC WITH AUTO DIFFERENTIAL STAT 11/06/2024 10:08 AM ORNAMENTAL METAL ERECTOR APPRENTICE CT HEAD STROKE PROTOCOL WITHOUT CONTRAST STAT 11/06/2024 10:05 AM ORNAMENTAL METAL ERECTOR APPRENTICE CT ANGIO HEAD NECK CAROTID STROKE PROTOCOL ROLF CANDIDAT STAT 11/06/2024 10:00 AM ORNAMENTAL METAL ERECTOR APPRENTICE from Last 3 Months Results * (ABNORMAL) GLUCOSE METER (11/16/2024 9:42 PM ORNAMENTAL METAL ERECTOR APPRENTICE) Only the most recent of11 resultswithin the time period is included. [facility] Signature GLUCOSE METER 120(H) 65 - 100 mg/dL 11/16/2024 9:43 PM ORNAMENTAL METAL ERECTOR APPRENTICE [facility] Blood BLOOD SPECIMEN / Unknown 11/16/2024 9:42 PM ORNAMENTAL METAL ERECTOR APPRENTICE 11/16/2024 9:43 PM ORNAMENTAL METAL ERECTOR APPRENTICE us Valarie Mays MD CHEMISTRY Roseanne l Result [facility] [address] [place] [address], [place] * PLATELET COUNT (11/15/2024 8:06 AM ORNAMENTAL METAL ERECTOR APPRENTICE) Only the most recent of3 resultswithin the time period is included. PLATELET COUNT 201 140 - 440 thou/cu mm 11/15/2024 8:36 AM ORNAMENTAL METAL ERECTOR APPRENTICE [facility] MPV 10.3 6.5 - 11.0 fL 11/15/2024 8:36 AM ORNAMENTAL METAL ERECTOR APPRENTICE [facility] Blood BLOOD SPECIMEN / Unknown Butterfly / Unknown 11/15/2024 8:06 AM ORNAMENTAL METAL ERECTOR APPRENTICE 11/15/2024 8:23 AM ORNAMENTAL METAL ERECTOR APPRENTICE Narrative [facility] - 11/15/2024 8:36 AM ORNAMENTAL METAL ERECTOR APPRENTICE With am labs while on heparin or LMWH per hospital policy Pepito Umana MD HEMATOLOGY Final Result Performing Organization Address [facility] de Phone Number [facility] [address] [place] [address], [place] * WBC AM (11/15/2024 8:06 AM ORNAMENTAL METAL ERECTOR APPRENTICE) Only the most recent of2 resultswithin the time period is included. WHITE BLOOD COUNT 9.7 4.5 - 11.0 thou/cu mm 11/15/2024 8:36 AM ORNAMENTAL METAL ERECTOR APPRENTICE [facility] NRBC 0.0 % 11/15/2024 8:36 AM ORNAMENTAL METAL ERECTOR APPRENTICE [facility] ABS NRBC 0.0 thou /cu mm 11/15/2024 8:36 AM ORNAMENTAL METAL ERECTOR APPRENTICE [facility] Blood BLOOD SPECIMEN / Unknown Butterfly / Unknown 11/15/2024 8:06 AM ORNAMENTAL METAL ERECTOR APPRENTICE 11/15/2024 8:23 AM ORNAMENTAL METAL ERECTOR APPRENTICE Narrative [facility] - 11/15/2024 8:36 AM ORNAMENTAL METAL ERECTOR APPRENTICE With am labs while on heparin or LMWH per hospital policy Allan Story MD HEMATOLOGY Final R esult Performing Organization Address [facility] Co de Phone Number [facility] [address] [place] [address], [place] * SODIUM (11/14/2024 6:12 AM ORNAMENTAL METAL ERECTOR APPRENTICE) SODIUM 136 136 - 145 mmol/L 11/14/2024 6:54 AM ORNAMENTAL METAL ERECTOR APPRENTICE [facility] Blood BLOOD SPECIMEN / Unknown Venipuncture / Unknown 11/14/2024 6:12 AM ORNAMENTAL METAL ERECTOR APPRENTICE 11/14/2024 6:22 AM ORNAMENTAL METAL ERECTOR APPRENTICE Pepito Umana MD CHEMISTRY Final Result [facility] [address] [place] [address], [place] * POTASSIUM (11/14/2024 6:12 AM ORNAMENTAL METAL ERECTOR APPRENTICE) POTASSIUM 4.0 3.5 - 5.1 mmol/L 11/14/2024 6:54 AM ORNAMENTAL METAL ERECTOR APPRENTICE [facility] Blood BLOOD SPECIMEN / Unknown Venipuncture / Unknown 11/14/2024 6:12 AM ORNAMENTAL METAL ERECTOR APPRENTICE 11/14/2024 6:22 AM ORNAMENTAL METAL ERECTOR APPRENTICE Pepito Umana MD CHEMISTRY Final Result Performing Organization Address City/[facility] Co de Phone Number [facility] [address] [place] [address], [place] * (ABNORMAL) CREATININE (11/14/2024 6:12 AM ORNAMENTAL METAL ERECTOR APPRENTICE) eGFR 70(L) >90 mL/min/1.7 3m2 11/14/2024 6:54 AM ORNAMENTAL METAL ERECTOR APPRENTICE [facility] Comment:As of 2022, eG FR is calculated by the CKD-EPI creatinine equation without race adjustment. eGFR can be influenced by muscle mass, exercise, and diet. The reported eGFR is an estimation only and is only applicable if the renal function is stable. CREATININE 1.05 0.70 - 1.20 mg/dL 11/14/2024 6:54 AM ORNAMENTAL METAL ERECTOR APPRENTICE [facility] Blood BLOOD SPECIMEN / Unknown Venipuncture / Unknown 11/14/2024 6:12 AM ORNAMENTAL METAL ERECTOR APPRENTICE 11/14/2024 6:22 AM ORNAMENTAL METAL ERECTOR APPRENTICE Pepito Umana MD CHEMISTRY Final Result [facility] [address] [place] [address], * (ABNORMAL) CBC WITH AUTO DIFFERENTIAL (11/13/2024 4:25 AM ORNAMENTAL METAL ERECTOR APPRENTICE) Only the most recent of2 resultswithin the time period is included. WHITE BLOOD COUNT 12.9(H) 4.5 - 11.0 thou/cu mm 11/13/2024 4:39 AM [facility] RED BLOOD COUNT 5.29 4.30 - 5.90 mil/cu mm 11/13/2024 4:39 AM [facility] HEMOGLOBIN 15.4 13.5 - 17.5 g/dL 11/13/2024 4:39 AM [facility] HEMATOCRIT 45.3 37.0 - 53.0 % 11/13/2024 4:39 AM [facility] MCV 86 80 - 100 fL 11/13/2024 4:39 AM [facility] MCH 29.1 26.0 - 34.0 pg 11/13/2024 4:39 AM [facility] MCHC 34.0 32.0 - 36.0 g/dL 11/13/2024 4:39 AM [facility] RDW 12.5 11.5 - 15.5 % 11/13/2024 4:39 AM [facility] PLATELET COUNT 176 140 - 440 thou/cu mm 11/13/2024 4:39 AM [facility] MPV 10.2 6.5 - 11.0 fL 11/13/2024 4:39 AM [facility] NRBC 0.0 % 11/13/2024 4:39 AM [facility] ABS NRBC 0.0 thou /cu mm 11/13/2024 4:39 AM [facility] % NEUT 93.4 % 11/13/2024 4:39 AM [facility] % LYMPH 4.6 % 11/13/2024 4:39 AM [facility] % MONO 1.3 % 11/13/2024 4:39 AM [facility] % EOS 0.1 % 11/13/2024 4:39 AM [facility] % BASO 0.1 % 11/13/2024 4:39 AM [facility] % IMMATURE GRAN (METAS,MYELOS,TX OS) 0.5 % 11/13/2024 4:39 AM [facility] ABSOLUTE NEUTROPHILS 12.1(H) 1.7 - 7.0 thou/cu mm 11/13/2024 4:39 AM [facility] ABSOLUTE LYMPHOCYTES 0.6(L) 0.9 - 2.9 thou/cu mm 11/13/2024 4:39 AM [facility] ABSOLUTE MONOCYTES 0.2 <0.9 thou/cu mm 11/13/2024 4:39 AM [facility] ABSOLUTE EOSINOPHILS 0.0 <0.5 thou/cu mm 11/13/2024 4:39 AM [facility] ABSOLUTE BASOPHILS 0.0 <0.3 thou/cu mm 11/13/2024 4:39 AM [facility] ABSOLUTE IMMATURE GRANULOCYTES(MET ,MYELOS,PROS) 0.1 <0.3 thou/cu mm 11/13/2024 4:39 AM [facility] Blood BLOOD SPECIMEN / Unknown Butterfly / Unknown 11/13/2024 4:25 AM [facility] 11/13/2024 4:33 AM [facility] - 11/13/2024 4:39 AM ORNAMENTAL METAL ERECTOR APPRENTICE RN to order if patient presents with two or more positive sepsis screening criteria plus new or worsening signs or symptoms of suspected infection. Pepito Umana MD HEMATOLOGY Final Result [facility] [address] [place] [address], [place] * (ABNORMAL) BLOOD GAS,VENOUS (11/13/2024 4:25 AM ORNAMENTAL METAL ERECTOR APPRENTICE) Only the most recent of2 resultswithin the time period is included. PH, VENOUS 7.36 7.32 - 7.43 11/13/2024 4:46 AM ORNAMENTAL METAL ERECTOR APPRENTICE [facility] PCO2, VENOUS 38(L) 41 - 51 mmHg 11/13/2024 4:46 AM ORNAMENTAL METAL ERECTOR APPRENTICE [facility] PO2, VENOUS 54(H) 35 - 40 mmHg 11/13/2024 4:46 AM ORNAMENTAL METAL ERECTOR APPRENTICE [facility] HCO3,VENOUS 22 22 - 29 mmol/L 11/13/2024 4:46 AM ORNAMENTAL METAL ERECTOR APPRENTICE [facility] BASE EXCESS, VENOUS, POCT -3.6(L) -2.0 - 3.0 11/13/2024 4:46 AM ORNAMENTAL METAL ERECTOR APPRENTICE [facility] O2 SATURATION, VENOUS 86(H) 70 - 75 % 11/13/2024 4:46 AM ORNAMENTAL METAL ERECTOR APPRENTICE [facility] PATIENT TEMPERATURE 37.0 Degrees C 11/13/2024 4:46 AM ORNAMENTAL METAL ERECTOR APPRENTICE [facility] Blood BLOOD SPECIMEN / Unknown Butterfly / Unknown 11/13/2024 4:25 AM ORNAMENTAL METAL ERECTOR APPRENTICE 11/13/2024 4:33 AM ORNAMENTAL METAL ERECTOR APPRENTICE Pepito Umana MD CHEMISTRY Final Result [facility] [address] [place] [address], [place] * Magnesium - [employer] (11/13/2024 4:25 AM ORNAMENTAL METAL ERECTOR APPRENTICE) MAGNESIUM 2.2 1.6 - 2.4 mg/dL 11/13/2024 4:56 AM ORNAMENTAL METAL ERECTOR APPRENTICE [facility] Blood BLOOD SPECIMEN / Unknown Butterfly / Unknown 11/13/2024 4:25 AM ORNAMENTAL METAL ERECTOR APPRENTICE 11/13/2024 4:33 AM ORNAMENTAL METAL ERECTOR APPRENTICE Pepito Umana MD CHEMISTRY Final Result [facility] [address] [place] [address], * (ABNORMAL) Comprehensive Metabolic Panel - [employer] (11/13/2024 4:25 AM ORNAMENTAL METAL ERECTOR APPRENTICE) Only the most recent of2 resultswithin the time period is included. SODIUM 135(L) 136 - 145 mmol/L 11/13/2024 4:56 AM [facility] POTASSIUM 4.7 3.5 - 5.1 mmol/L 11/13/2024 4:56 AM [facility] CHLORIDE 103 98 - 107 mmol/L 11/13/2024 4:56 AM [facility] CO2,TOTAL 19(L) 22 - 29 mmol/L 11/13/2024 4:56 AM [facility] ANION GAP 13 5 - 18 11/13/2024 4:56 AM [facility] GLUCOSE 190(H) 70 - 99 mg/dL 11/13/2024 4:56 AM [facility] CALCIUM 8.8 8.8 - 10.4 mg/dL 11/13/2024 4:56 AM [facility] Comment: Reference ranges for this test were updated on 09/22/2024 to reflect our healthy population more accurately. Reference range changes are not retroactively applied to results, but previous results using the same methodology can be interpreted in the context of the new reference range. BUN 27(H) 8 - 23 mg/dL 11/13/2024 4:56 AM [facility] CREATININE 1.11 0.70 - 1.20 mg/dL 11/13/2024 4:56 AM [facility] BUN/CREAT RATIO 24(H) 10 - 20 4:56 AM [facility] eGFR 66(L) >90 mL/min/1. 73m2 11/13/2024 4:56 AM ORNAMENTAL METAL ERECTOR APPRENTICE [facility] Comment:As of 2022, eG FR is calculated by the CKD-EPI creatinine equation without race adjustment. eGFR can be influenced by muscle mass, exercise, and diet. The reported eGFR is an estimation only and is only applicable if the renal function is stable. ALBUMIN 3.5(L) 4.0 - 4.9 g/dL 11/13/2024 4:56 AM ORNAMENTAL METAL ERECTOR APPRENTICE [facility] PROTEIN,TOTAL 7.4 6.0 - 8.0 g/dL 11/13/2024 4:56 AM ORNAMENTAL METAL ERECTOR APPRENTICE [facility] BILIRUBIN,TOTAL 0.8 0.0 - 1.2 mg/dL 11/13/2024 4:56 AM ORNAMENTAL METAL ERECTOR APPRENTICE [facility] ALK PHOSPHATASE 87 40 - 129 IU/L 11/13/2024 4:56 AM ORNAMENTAL METAL ERECTOR APPRENTICE [facility] ALT (SGPT) 26 10 - 50 IU/L 11/13/2024 4:56 AM ORNAMENTAL METAL ERECTOR APPRENTICE [facility] AST (SGOT) 35 10 - 50 IU/L 11/13/2024 4:56 AM ORNAMENTAL METAL ERECTOR APPRENTICE [facility] TRA LABORATORY Blood BLOOD SPECIMEN / Unknown Butterfly / Unknown 11/13/2024 4:25 AM ORNAMENTAL METAL ERECTOR APPRENTICE 11/13/2024 4:33 AM ORNAMENTAL METAL ERECTOR APPRENTICE Pepito Umana MD CHEMISTRY Final Result [facility] [address] [address], * CT head without contrast (11/12/2024 9:25 PM ORNAMENTAL METAL ERECTOR APPRENTICE) Anatomical Region Laterality Modality HEAD, BRAIN Computed Tomogra phy 11/12/2024 9:35 PM ORNAMENTAL METAL ERECTOR APPRENTICE Impressions 11/12/2024 9:35 PM ORNAMENTAL METAL ERECTOR APPRENTICE 1. Redemonstration of the subacute infarct at [...] PM (Electronically Signed) Narrative 11/12/2024 9:35 PM ORNAMENTAL METAL ERECTOR APPRENTICE For Patients: As a result of the [...] * Blood culture STAT (11/12/2024 7:45 PM ORNAMENTAL METAL ERECTOR APPRENTICE) Only the most recent of2 resultswithin the time period is included. Pathologist [facility] [place] CULTURE No Growth. 11/17/2024 8:19 PM ORNAMENTAL METAL ERECTOR APPRENTICE [facility] Blood BLOOD SPECIMEN / Unknown Butterfly / Unknown 11/12/2024 7:45 PM ORNAMENTAL METAL ERECTOR APPRENTICE 11/12/2024 7:54 PM ORNAMENTAL METAL ERECTOR APPRENTICE Narrative [facility] - 11/17/2024 8:19 PM ORNAMENTAL METAL ERECTOR APPRENTICE Low volume blood culture received; possible false negative culture. us Cody Mendes MD MICROBIOLOGY Final Result [facility] [address] [place] [address], * ECG STAT (11/12/2024 7:41 PM ORNAMENTAL METAL ERECTOR APPRENTICE) Only the most recent of3 resultswithin the time period is included. Interpretation Sinus tachycardia Minimal voltage criteria for LVH, may be normal variant ( R in aVL ) Nonspecific ST and T wave abnormality Abnormal ECG When compared with ECG of 06-Nov-2024 14:32, [place] interval has decreased ST now depressed in Lateral leads Nonspecific T wave abnormality no longer evident in Inferior leads BEYOND NOW Ventricular Rate 118 BPM BEYOND NOW Atrial Rate 118 BPM BEYOND NOW P-R Interval 194 ms BEYOND NOW QRS Duration 84 ms BEYOND NOW QT 298 ms BEYOND NOW QTc 417 ms BEYOND NOW P [place] 41 degrees BEYOND NOW R [place] -14 degrees BEYOND NOW T [place] 62 degrees BEYOND NOW 11/12/2024 7:41 PM ORNAMENTAL METAL ERECTOR APPRENTICE 11/13/2024 5:26 PM ORNAMENTAL METAL ERECTOR APPRENTICE us Cody Mendes MD EKG ORD Final Result BEYOND NOW [place], [place] * Lactate STAT (venous) (11/12/2024 7:22 PM ORNAMENTAL METAL ERECTOR APPRENTICE) LACTATE,VENOUS 1.3 0.5 - 2.0 mmol/L 11/12/2024 7:53 PM ORNAMENTAL METAL ERECTOR APPRENTICE [facility] Blood BLOOD SPECIMEN / Unknown Butterfly / Unknown 11/12/2024 7:22 PM ORNAMENTAL METAL ERECTOR APPRENTICE 11/12/2024 7:29 PM ORNAMENTAL METAL ERECTOR APPRENTICE Cody Mendes MD CHEMISTRY Final Result [facility] [address] [place] [address], [place] * XR CHEST 1 VIEW PORTABLE (11/12/2024 7:20 PM ORNAMENTAL METAL ERECTOR APPRENTICE) Anatomical Region Laterality Modality HEART, THORAX, CHEST Digital Rad iography 11/13/2024 6:44 AM ORNAMENTAL METAL ERECTOR APPRENTICE Impressions 11/13/2024 6:44 AM ORNAMENTAL METAL ERECTOR APPRENTICE Appearance suggests infectious airways disease/bronchitis without a large focal pneumonia. Dictated by Awa Woodard MD @ Nov 13 2024 6:44AM (Electronically Signed) [email or web address] Narrative 11/13/2024 6:44 AM ORNAMENTAL METAL ERECTOR APPRENTICE For Patients: As a result of the [...] @ Nov 13 2024 6:44AM (Electronically Signed) [email or web address] Pepito Umana MD GENERAL IMAGING Final Result * (ABNORMAL) Urinalysis TODAY (11/12/2024 6:48 PM ORNAMENTAL METAL ERECTOR APPRENTICE) COLOR Yellow Yellow Color 11/12/2024 7:09 PM ORNAMENTAL METAL ERECTOR APPRENTICE [facility] LABORATORY-CE NTRAL LABORATORY CLARITY Clear Clear Clarity 11/12/2024 7:09 PM ORNAMENTAL METAL ERECTOR APPRENTICE [facility] LABORATORY- NTRAL LABORATORY SPECIFIC GRAVITY,URINE 1.020 1.010, 1.015, 1.020, 1.025 11/12/2024 7:09 PM ORNAMENTAL METAL ERECTOR APPRENTICE [facility] LABORATORY- NTRAL LABORATORY PH,URINE 6.0 6.0, 7.0, 8.0, 5.5, 6.5, 7.5, 8.5 11/12/2024 7:09 PM ORNAMENTAL METAL ERECTOR APPRENTICE [facility] LABORATORY- NTRAL LABORATORY UROBILINOGEN, QUALITATIVE Increased(A) Normal EU/dl 11/12/2024 7:09 PM ORNAMENTAL METAL ERECTOR APPRENTICE [facility] LABORATORY- NTRAL LABORATORY PROTEIN, URINE Trace(A) Negative mg/dL 11/12/2024 7:09 PM ORNAMENTAL METAL ERECTOR APPRENTICE [facility] LABORATORY- NTRAL LABORATORY GLUCOSE, URINE Negative Negative mg/dL 11/12/2024 7:09 PM ORNAMENTAL METAL ERECTOR APPRENTICE [facility] KETONES,URINE Negative Negative mg/dL 11/12/2024 7:09 PM ORNAMENTAL METAL ERECTOR APPRENTICE [facility] NTRAL LABORATORY BILIRUBIN,URI NE Negative Negative 11/12/2024 7:09 PM ORNAMENTAL METAL ERECTOR APPRENTICE [facility] LABORATORY- NTRAL LABORATORY OCCULT BLOOD,URINE Negative Negative 11/12/2024 7:09 PM [facility] NTRAL LABORATORY NITRITE Negative Negative 11/12/2024 7:09 PM ORNAMENTAL METAL ERECTOR APPRENTICE [facility] N[facility] LABORATORY LEUKOCYTE ESTERASE Negative Negative 11/12/2024 7:09 PM [facility] LABORATORY Urine URINE SPECIMEN / Unknown Non-Blood / Unknown 11/12/2024 6:48 PM ORNAMENTAL METAL ERECTOR APPRENTICE 11/12/2024 7:02 PM ORNAMENTAL METAL ERECTOR APPRENTICE Pepito Umana MD URINE Final Result [facility] [address] [place] [address], [place] * (ABNORMAL) CBC no diff TODAY (11/12/2024 5:43 PM ORNAMENTAL METAL ERECTOR APPRENTICE) Only the most recent of2 resultswithin the time period is included. WHITE BLOOD COUNT 11.4(H) 4.5 - 11.0 thou/cu mm 11/12/2024 6:01 PM [facility] TRAL LABORATORY RED BLOOD COUNT 5.54 4.30 - 5.90 mil/cu mm 11/12/2024 6:01 PM [facility] TRAL LABORATORY HEMOGLOBIN 15.9 13.5 - 17.5 g/dL 11/12/2024 6:01 PM [facility] TRAL LABORATORY HEMATOCRIT 46.9 37.0 - 53.0 % 11/12/2024 6:01 PM [facility] TRAL LABORATORY MCV 85 80 - 100 fL 11/12/2024 6:01 PM [facility] TRAL LABORATORY MCH 28.7 26.0 - 34.0 pg 11/12/2024 6:01 PM [facility] TRAL LABORATORY MCHC 33.9 32.0 - 36.0 g/dL 11/12/2024 6:01 PM [facility] TRAL LABORATORY RDW 12.4 11.5 - 15.5 % 11/12/2024 6:01 PM [facility] TRAL LABORATORY PLATELET COUNT 177 140 - 440 thou/cu mm 11/12/2024 6:01 PM [facility] TRAL LABORATORY MPV 9.6 6.5 - 11.0 fL 11/12/2024 6:01 PM ORNAMENTAL METAL ERECTOR APPRENTICE [facility] TRAL LABORATORY NRBC 0.0 % 11/12/2024 6:01 PM ORNAMENTAL METAL ERECTOR APPRENTICE [facility] TRAL LABORATORY ABS NRBC 0.0 thou /cu mm 11/12/2024 6:01 PM ORNAMENTAL METAL ERECTOR APPRENTICE [facility] TRAL LABORATORY Blood BLOOD SPECIMEN / Unknown Butterfly / Unknown 11/12/2024 5:43 PM ORNAMENTAL METAL ERECTOR APPRENTICE 11/12/2024 5:57 PM ORNAMENTAL METAL ERECTOR APPRENTICE us Pepito Umana MD HEMATOLOGY Final Result [facility] [address] [place] [address], [place] * SCAN-CARDIAC STRIP (11/09/2024 1:18 AM ORNAMENTAL METAL ERECTOR APPRENTICE) us Scanner OTHER Final Result * SCAN-CARDIAC STRIP (11/08/2024 2:29 AM ORNAMENTAL METAL ERECTOR APPRENTICE) us Scanner OTHER Final Result * SCAN-CARDIAC STRIP (11/07/2024 5:59 PM ORNAMENTAL METAL ERECTOR APPRENTICE) us Scanner OTHER Final Result * MR HEAD BRAIN WO (11/07/2024 3:44 PM ORNAMENTAL METAL ERECTOR APPRENTICE) Anatomical Region Laterality Modality BRAIN, HEAD Magnetic Resonan ce 11/07/2024 11:4 4 PM ORNAMENTAL METAL ERECTOR APPRENTICE Impressions 11/07/2024 11:44 PM ORNAMENTAL METAL ERECTOR APPRENTICE 1. Small and very small/punctate acute/early subacute infarcts in the right parietal operculum, right precentral gyrus, and right centrum semiovale. 2. 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 3. Senescent changes including generalized parenchymal volume loss and findings most consistent with sequela of chronic small vessel ischemia. Dictated by Raad Darilng MD @ 11/07/2024 11:44:15 PM (Electronically Signed) Narrative 11/07/2024 11:44 PM ORNAMENTAL METAL ERECTOR APPRENTICE For Patients: As a result of the [...] Result * SCAN-CARDIAC STRIP (11/07/2024 12:02 PM ORNAMENTAL METAL ERECTOR APPRENTICE) us Scanner OTHER Final Result * XR ABDOMEN 1 VIEW PORTABLE (11/07/2024 8:22 AM ORNAMENTAL METAL ERECTOR APPRENTICE) Only the most recent of2 resultswithin the time period is included. Anatomical Region Laterality Modality Abdomen Digital Radiogra phy Narrative 11/07/2024 10:58 AM ORNAMENTAL METAL ERECTOR APPRENTICE Indication: Tube placement. Findings: A single portable view of the abdomen shows an enteric tube in place with the distal tip extending into the antrum of the stomach. No dilated loops of bowel identified. Degenerative changes of the spine. us Valarie Eduardo MD GENERAL IMAGING Fin al Result * Hemoglobin A1C Screening (11/07/2024 4:39 AM ORNAMENTAL METAL ERECTOR APPRENTICE) HEMOGLOBIN A1C SCREENING 5.6 <=6.4 % 11/07/2024 8:30 PM [facility] LAB[facility] Blood BLOOD SPECIMEN / Unknown Venipuncture / Unknown 11/07/2024 4:39 AM ORNAMENTAL METAL ERECTOR APPRENTICE 11/07/2024 5:00 AM [facility] LABORATORY - 11/07/2024 8:30 PM ORNAMENTAL METAL ERECTOR APPRENTICE (<5.7%) Normal (5.7% to 6.4%) Indicates prediabetes (>=6.5%) Confirms diabetes Falsely low levels may be seen with: Recent Transfusion, Recent Significant Blood Loss, Hemolytic Diseases, or Falsely elevated levels may be seen with: Untreated Anemias, Splenectomy us Valarie Eduardo MD CHEMISTRY Fin al Result [facility] [address] [place] [address], * (ABNORMAL) Lipid Panel (11/07/2024 4:39 AM ORNAMENTAL METAL ERECTOR APPRENTICE) CHOLESTEROL,TOTAL 84(L) 100 - 199 mg/dL 11/07/2024 5:37 AM [facility] TRAL LABORATORY Comment: Cholesterol, Total Reference Ranges Desirable <200 mg/dL Borderline 200-239 mg/dL High >=240 mg/dL TRIGLYCERIDES 53 <150 mg/dL 11/07/2024 5:37 AM [facility] TRAL LABORATORY HDL CHOLESTEROL 46 >40 mg/dL 5:[address] [facility] NON-HDL CHOLESTEROL 38 <145 mg/dl 11/07/2024 5:37 AM [facility] TRAL LABORATORY CHOL/HDL RATIO 1.83 <4.50 11/07/2024 5:37 AM [facility] LDL CHOLESTEROL 27 <=130 mg/dL 11/07/2024 5:37 AM [facility] TRAL LABORATORY VLDL CHOLESTEROL 11 <=30 mg/dL 11/07/2024 5:37 AM [facility] PROVIDER ORDERED STATUS RANDOM 11/07/2024 5:[address] [facility] Blood BLOOD SPECIMEN / Unknown Venipuncture / Unknown 11/07/2024 4:39 AM ORNAMENTAL METAL ERECTOR APPRENTICE 11/07/2024 5:00 AM ORNAMENTAL METAL ERECTOR APPRENTICE us Valarie Eduardo MD CHEMISTRY Fin al Result [facility]AT[facility]-CENTRAL LABORATORY [address] [place] [address], [place] * SCAN-CARDIAC STRIP (11/06/2024 8:00 PM ORNAMENTAL METAL ERECTOR APPRENTICE) us Scanner OTHER Final Result * ECHO TTE COMPLETE W CONTRAST (11/06/2024 5:01 PM ORNAMENTAL METAL ERECTOR APPRENTICE) AORTIC VALVE MEAN PG 2 mmHg LVEDD 3.7 cm EJECTION FRACTION 60 - 65% Anatomical Region Laterality Modality Ultrasound 11/06/2024 3:46 PM ORNAMENTAL METAL ERECTOR APPRENTICE Narrative 11/06/2024 5:03 PM ORNAMENTAL METAL ERECTOR APPRENTICE ECHOCARDIOGRAM FELIX OJEDA : 1940 83 years Study Date: 11/06/2024 3:46:27 PM Gender: M BP: 170/101 mmHg Height: 182.88 cm BSA: 2.42 m Weight: 123.01 kg Tech: TK Referring MD: VALARIE EDUARDO Site: [facility] Reading Location: [facility] Patient Location: Inpatient. Procedure: 2D w/ Contrast, [...] documentation: 2 ml diluted Definity, lot #[id number], [facility]# [id number] was administered peripherally to enhance visualization of all left ventricular segments. . This study was interpreted by an [facility] accredited facility. Final Procedure Note Cassie Dennison, [facility] - 11/06/2024 ECHOCARDIOGRAM FELIX OJEDA : 1940 83 years Study Date: 11/06/2024 3:46:27 PM Gender: M BP: 170/101 mmHg Height: 182.88 cm BSA: 2.42 m Weight: 123.01 kg Tech: TK Referring MD: VALARIE EDUARDO Site: [facility] Reading Location: [facility] IP Patient Location: [...] documentation: 2 ml diluted Definity, lot #[id number], [facility]#[id number] was administered peripherally to enhance visualization of allleft ventricular segments. . This study was interpreted by an [facility] accredited facility. 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 Then, a 4mm x 20mm Drawing Machine Operator angioplasty balloon was advanced over the wire [...] was performed. Raad Darling M.D. Neurointerventional Radiologist [facility] Pager: Office/Appointments: Answering Service: [facility] Transfer Center: [email or web address] us Raad Darling MD IR Fin al Result * ETHANOL SERUM OR PLASMA (11/06/2024 10:08 AM ORNAMENTAL METAL ERECTOR APPRENTICE) ETHANOL <0.010 <0.010 g/dL 11/06/2024 10:33 AM ORNAMENTAL METAL ERECTOR APPRENTICE [facility] Blood BLOOD SPECIMEN / Unknown Butterfly / Unknown 11/06/2024 10:08 AM ORNAMENTAL METAL ERECTOR APPRENTICE 11/06/2024 10:13 AM ORNAMENTAL METAL ERECTOR APPRENTICE us Jakub Contreras MD CHEMISTRY Fin al Result [facility] [address] [place], [place] [id number] * (ABNORMAL) PROTIME- INR (11/06/2024 10:08 AM ORNAMENTAL METAL ERECTOR APPRENTICE) INR 1.3(H) <1.3 11/06/2024 10:23 AM ORNAMENTAL METAL ERECTOR APPRENTICE [facility] PROTIME 14.7(H) 10.6 - 12.4 sec 11/06/2024 10:23 AM [facility] Blood BLOOD SPECIMEN / Unknown Butterfly / Unknown 11/06/2024 10:08 AM ORNAMENTAL METAL ERECTOR APPRENTICE 11/06/2024 10:13 AM [facility] LABORATORY - 11/06/2024 10:23 AM [facility] Therapeutic Range 2.0-3.0 for most anticoagulated patients [...] Jakub Contreras MD HEMATOLOGY Fin al Result [facility] [address] [place] [address] * (ABNORMAL) BASIC METABOLIC PANEL (11/06/2024 10:08 AM [facility]) SODIUM 137 136 - 145 mmol/L 11/06/2024 10:34 AM [facility] POTASSIUM 4.3 3.5 - 5.1 mmol/L 11/06/2024 10:34 AM [facility] CHLORIDE 104 98 - 107 mmol/L 11/06/2024 10:34 AM [facility] CO2,TOTAL 23 22 - 29 mmol/L 11/06/2024 10:34 AM [facility] ANION GAP 10 5 - 18 11/06/2024 10:34 AM [facility] GLUCOSE 118(H) 70 - 99 mg/dL 11/06/2024 10:34 AM [facility] CALCIUM 8.9 8.8 - 10.4 mg/dL 11/06/2024 10:34 AM [facility] Comment: Reference ranges for this test were updated on 09/22/2024 to reflect our healthy population more accurately. Reference range changes are not retroactively applied to results, but previous results using the same methodology can be interpreted in the context of the new reference range. BUN 15 8 - 23 mg/dL 11/06/2024 10:34 AM [facility] CREATININE 1.16 0.70 - 1.20 mg/dL 11/06/2024 10:34 AM [facility] BUN/CREAT RATIO 13 10 - 20 4 10:34 AM [facility] eGFR 63(L) >90 mL/min/1. 73m2 11/06/2024 10:34 AM [facility] Comment:As of 2022, eG FR is calculated by the CKD-EPI creatinine equation without race adjustment. eGFR can be influenced by muscle mass, exercise, and diet. The reported eGFR is an estimation only and is only applicable if the renal function is stable. Blood BLOOD SPECIMEN / Unknown Butterfly / Unknown 11/06/2024 10:08 AM ORNAMENTAL METAL ERECTOR APPRENTICE 11/06/2024 10:13 AM ORNAMENTAL METAL ERECTOR APPRENTICE Jakub Contreras MD CHEMISTRY Fin al Result [facility] [address] [place] [address] * CT HEAD STROKE PROTOCOL WITHOUT CONTRAST Thrombolytic Candidate (11/06/2024 10:05 AM ORNAMENTAL METAL ERECTOR APPRENTICE) Anatomical Region Laterality Modality BRAIN Computed Tomogra phy 11/06/2024 10:1 2 AM ORNAMENTAL METAL ERECTOR APPRENTICE Impressions 11/06/2024 10:12 AM ORNAMENTAL METAL ERECTOR APPRENTICE Involutional changes. No acute-appearing findings. Old left occipital infarct. No hemorrhage. Please note that all CT scans at this facility use dose modulation, iterative reconstruction, and/or weight-based dosing when appropriate to reduce radiation dose to as low as reasonably achievable. Dictated by Nasim Varela MD @ 11/06/2024 10:12:17 AM (Electronically Signed) Narrative 11/06/2024 10:12 AM ORNAMENTAL METAL ERECTOR APPRENTICE For Patients: As a result of the [...] on November 06, 2024 Procedure Note Nasim Vareal MD - 11/06/2024 For Patients: As a [...] STROKE PROTOCOL ROLF CANDIDAT (11/06/2024 10:00 AM ORNAMENTAL METAL ERECTOR APPRENTICE) Anatomical Region Laterality Modality BRAIN, NECK Computed Tomogra phy 11/06/2024 10:3 3 AM ORNAMENTAL METAL ERECTOR APPRENTICE Impressions 11/06/2024 10:33 AM ORNAMENTAL METAL ERECTOR APPRENTICE 1. 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
--- OUTSIDE RECORDS SUMMARY | 2024-11-19 15:14 | XMS_ITS | Encounter Summary ---
Author Organization [facility] Address [address] [place] [address]. 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
--- OUTSIDE RECORDS SUMMARY | 2024-11-19 15:14 | XMS_ITS | Clinical Summary ---
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
== END 2024-11-19 16:13 | disposition home or self-care (01) ==
PROVIDERS: Emergency Provider Emergency Medicine Emergency Medical Services; PCP Family Medicine
DX: S09.90XA Unspecified injury of head, initial encounter (principal); W19.XXXA Unspecified fall, initial encounter
CPT/HCPCS: 70450; 72125; 99283; 99284

== ENCOUNTER 2024-11-19 16:00 | Outpatient (CLI) | payer MEDICARE, BC, SELFPAY | END 2024-11-19 16:01 | disposition home or self-care (01) | LOC: AMB 11-28 01:38 | PROVIDERS: PCP Family Medicine; Visit Provider Emergency Medicine Emergency Medical Services | DX: S09.90XA Unspecified injury of head, initial encounter (principal); W18.30XA Fall on same level, unspecified, initial encounter; Y92.129 Unspecified place in nursing home as the place of occurrence of the external cause | CPT/HCPCS: A0425; A0428 ==

== ENCOUNTER 2025-01-13 08:40 | Outpatient (CLI) | payer MEDICARE, BC, SELFPAY | END 2025-01-13 08:41 | disposition home or self-care (01) | LOC: RAD 08:41 | PROVIDERS: PCP Family Medicine; Visit Provider Nurse Practitioner Gerontology | DX: I69.391 Dysphagia following cerebral infarction (principal); I69.354 Hemiplegia and hemiparesis following cerebral infarction affecting left non-dominant side | CPT/HCPCS: 74230; 92611 ==